=== PATIENT | female | born 1935 | race Caucasian/White ===

== ENCOUNTER → 2017-01-20 | Outpatient (CLI) | payer MEDICARE ==
[2017-01-20 12:17] LABS: ABSOLUTE EOSINOPHILS # (AUTO) 0.3 10^3/uL (0.0-0.6); ABSOLUTE LYMPHOCYTES (AUTO) 1.6 10^3/uL (0.5-4.7); ABSOLUTE MONOCYTES (AUTO) 0.5 10^3/uL (0.1-1.4); ABSOLUTE NEUT (AUTO) 3.5 10^3/uL (1.7-8.2); BASOPHILS % (AUTO) 0.5 % (0-2); EOSINOPHILS % (AUTO) 5.3 % (0-6); HEMATOCRIT 35.4 % (36.0-47.0); HEMOGLOBIN 12.6 g/dL (12.0-15.5); HGB HCT DIFFERENCE 2.4; LYMPHOCYTES % (AUTO) 27.2 % (13-45); MEAN CORPUSCULAR HEMOGLOBIN 33.6 pg (27.0-33.4); MEAN CORPUSCULAR HGB CONC 35.6 g/dL (32.0-36.0); MEAN CORPUSCULAR VOLUME 94 fl (80-97); MONOCYTES % (AUTO) 7.7 % (3-13); RED BLOOD COUNT 3.76 10^6/uL (3.72-5.28); RED CELL DISTRIBUTION WIDTH 13.5 % (11.5-14.0); SEGMENTED NEUTROPHILS % (AUTO) 59.3 % (42-78); WHITE BLOOD COUNT 5.9 10^3/uL (4.0-10.5)
[2017-01-20 12:50] LABS: ALANINE AMINOTRANSFERASE 23 U/L (9-52); ALBUMIN 4.3 g/dL (3.5-5.0); ALKALINE PHOSPHATASE 56 U/L (38-126); ANION GAP 10 (5-19); ASPARTATE AMINO TRANSFERASE 16 U/L (14-36); BILIRUBIN,DIRECT 0.5 mg/dL (0.0-0.4); BILIRUBIN,TOTAL 1.2 mg/dL (0.2-1.3); BLOOD UREA NITROGEN 18 mg/dL (7-20); CALCIUM 10.5 mg/dL (8.4-10.2); CARBON DIOXIDE 31 mmol/L (22-30); CHLORIDE 101 mmol/L (98-107); CHOLESTEROL 177.26 mg/dL (0-200); Direct HDL 59 mg/dL (>40); GLUCOSE 108 mg/dL (75-110); POTASSIUM 3.7 mmol/L (3.6-5.0); SODIUM 141.8 mmol/L (137-145); TOTAL PROTEIN 7.4 g/dL (6.3-8.2); TRIGLYCERIDES 155 mg/dL (<150)
[2017-01-20 13:01] LABS: DIRECT LDL 88 mg/dL (<100)
== END ==
LOC: OD 10:54
PROVIDERS: ATTEND Internal Medicine
DX: I10 Essential (primary) hypertension (principal); E78.5 Hyperlipidemia, unspecified; R53.83 Other fatigue
CPT/HCPCS: 36415; 80053; 80061; 84443; 85025

== ENCOUNTER → 2017-02-17 | Outpatient (CLI) | payer MEDICARE ==
[2017-02-17 16:30] LABS: FREE T3 4.3 pg/mL (2.77-5.27)
[2017-02-17 16:44] LABS: THYROID STIMULATING HORMONE 0.98 uIU/mL (0.47-4.68)
[2017-02-19 06:39] LABS: THYROXINE BINDING GLOBULIN 20 ug/mL (13-39)
[2017-02-19 07:40] LABS: THYROGLOBULIN AB <1.0 IU/mL (0.0-0.9); THYROID PEROXIDASE (TPO) AB 12 IU/mL (0-34)
== END ==
LOC: OD 14:15
PROVIDERS: ATTEND Internal Medicine
DX: E05.90 Thyrotoxicosis, unspecified without thyrotoxic crisis or storm (principal)
CPT/HCPCS: 36415; 83519; 84439; 84442; 84443; 84481; 86376; 86800

== ENCOUNTER 2018-03-23 09:37 | Inpatient (IN) | payer MEDICARE ==
[2018-03-23] MEDS: METHYLPREDNISOLONE ACETATE INJ 40 MG/1 ML ML IM ONE ×2 (10:03→10:26)
[2018-03-23] MEDS: BUPIVACAINE HCL 0.75% INJ/PF (7.5 MG/1 ML) 10 ML SDV INJ ONE ×2 (10:03→10:26)
--- NOTE | 2018-03-23 10:25 | ER Document Report ---
ED Medical Screen (RME) - General Chief Complaint: Neck Pain >24hrs old Stated Complaint: NECK AND BACK PAIN Time Seen by Provider: 03/23/18 09:58 Notes: 82 years old female presents today with left-sided upper neck pain. For the last few days. Otherwise no known injuries. No other symptoms. On examination sharp tenderness were noted over the upper left paraspinal muscles. No tenderness over the spinal process noted. When attempted to give a mixture of Sensorcaine and Marcaine as a trigger point injection, when the needle went into the neck in the paraspinal muscles, she had a immediate vasovagal response and became unresponsive. She was rushed to the trauma bed, given oxygen. Subsequently she came around fully alert and oriented. She has no recollection of what happened. TRAVEL OUTSIDE OF THE [place] IN LAST 30 DAYS: No - Related Data Allergies/Adverse Reactions: No Known Allergies Allergy (Unverified 09/16/15 10:05) Past Medical History - Past Medical History Cardiac Medical History: Reports: Hx Hypertension - medicated Denies: Hx Heart Attack - HX OF MITRAL VALVE PROLAPSE Pulmonary Medical History: Denies: Hx Asthma Neurological Medical History: Denies: Hx Cerebrovascular Accident, Hx Seizures Renal/ Medical History: Denies: Hx Peritoneal Dialysis GI Medical History: Denies: Hx Hepatitis, Hx Hiatal Hernia, Hx Ulcer Infectious Medical History: Denies: Hx Hepatitis Past Surgical History: Reports: Hx Hysterectomy. Denies: Hx Mastectomy, Hx Open Heart Surgery, Hx Pacemaker Physical Exam - Vital signs Vitals: Temp Pulse Resp BP Pulse Ox 97.7 F 94 14 195/82 H 69 L 03/23/18 09:45 03/23/18 09:45 03/23/18 09:45 03/23/18 09:45 03/23/18 09:45 Course - Vital Signs Vital signs: Temp Pulse Resp BP Pulse Ox 97.7 F 94 14 195/82 H 69 L 03/23/18 09:45 03/23/18 09:45 03/23/18 09:45 03/23/18 09:45 03/23/18 09:45 Doctor's Discharge - Discharge Referrals: LOLLY HARTMAN MD [Primary Care Provider] - Follow up as needed
[2018-03-23 10:30] LABS: ABSOLUTE LYMPHOCYTES (AUTO) 1.9 10^3/uL (0.5-4.7); ABSOLUTE MONOCYTES (AUTO) 0.7 10^3/uL (0.1-1.4); ABSOLUTE NEUT (AUTO) 8.7 10^3/uL (1.7-8.2); BASOPHILS % (AUTO) 0.2 % (0-2); EOSINOPHILS % (AUTO) 0.4 % (0-6); HEMATOCRIT 32.7 % (36.0-47.0); LYMPHOCYTES % (AUTO) 16.5 % (13-45); MEAN CORPUSCULAR HEMOGLOBIN 33.5 pg (27.0-33.4); MEAN CORPUSCULAR HGB CONC 36.7 g/dL (32.0-36.0); MEAN CORPUSCULAR VOLUME 91 fl (80-97); MONOCYTES % (AUTO) 5.8 % (3-13); PLATELET COUNT 237 10^3/uL (150-450); RED BLOOD COUNT 3.58 10^6/uL (3.72-5.28); RED CELL DISTRIBUTION WIDTH 13.5 % (11.5-14.0); SEGMENTED NEUTROPHILS % (AUTO) 77.1 % (42-78); TOTAL CELLS COUNTED % (AUTO) 100 %; WHITE BLOOD COUNT 11.2 10^3/uL (4.0-10.5)
[2018-03-23 10:45] LABS: ALANINE AMINOTRANSFERASE 18 U/L (9-52); ALBUMIN 4.4 g/dL (3.5-5.0); ALKALINE PHOSPHATASE 66 U/L (38-126); ANION GAP 11 (5-19); ASPARTATE AMINO TRANSFERASE 18 U/L (14-36); BILIRUBIN,DIRECT 0.5 mg/dL (0.0-0.4); BILIRUBIN,TOTAL 1.5 mg/dL (0.2-1.3); BLOOD UREA NITROGEN 14 mg/dL (7-20); CALCIUM 10.7 mg/dL (8.4-10.2); CARBON DIOXIDE 31 mmol/L (22-30); CHLORIDE 94 mmol/L (98-107); GLUCOSE 143 mg/dL (75-110); POTASSIUM 3.7 mmol/L (3.6-5.0); SODIUM 136.3 mmol/L (137-145); TOTAL PROTEIN 7.6 g/dL (6.3-8.2)
--- NOTE | 2018-03-23 10:53 | RADIOLOGY REPORT (SQ) ---
EXAM DESCRIPTION: CT HEAD WITHOUT COMPLETED DATE/TIME: 03/23/2018 10:36 am REASON FOR STUDY: syncope COMPARISON: None. TECHNIQUE: Axial images acquired through the brain without intravenous contrast. Images reviewed wi th bone, brain and subdural windows. Additional sagittal and coronal reconstructions were generated. Images stored on PACS. All CT scanners at this facility use dose modulation, iterative reconstruction, and/or weight based d osing when appropriate to reduce radiation dose to as low as reasonably achievable (ALARA). [facility]: Dose Right [facility]: CareDose [facility]: Dose Right [facility]: Teradose 4D [facility]: QuadROI RADIATION DOSE: CT Rad equipment meets quality standard of care and radiation dose reduction techniq ues were employed. CTDIvol: 53.2 mGy. DLP: 1017 mGy-cm.mGy. LIMITATIONS: None. FINDINGS: VENTRICLES: Prominent. CEREBRUM: No masses. No hemorrhage. No midline shift. Areas of low density in the white matter mos t likely due to chronic micro-vascular ischemic change. No evidence for acute infarction. CEREBELLUM: No masses. No hemorrhage. No alteration of density. No evidence for acute infarction. EXTRAAXIAL SPACES: Age-related involutional change. No fluid collections. No masses. ORBITS AND GLOBE: No intra- or extraconal masses. Normal contour of globe without masses. CALVARIUM: No fracture. PARANASAL SINUSES: Mucosal nodule in the right maxillary sinus. No fluid levels. SOFT TISSUES: No mass or hematoma. OTHER: No other significant finding. IMPRESSION: CHRONIC CHANGES OF ATROPHY AND MICROVASCULAR ISCHEMIA. NO ACUTE PROCESS. EVIDENCE OF ACUTE STROKE: NO. TECHNICAL DOCUMENTATION: JOB ID: [id number] Quality ID # 436: Final reports with documentation of one or more dose reduction techniques (e.g., Au tomated exposure control, adjustment of the mA and/or kV according to patient size, use of iterative reconstruction technique) 2010 [employer]- All Rights Reserved Reading location - IP/workstation name: [email or web address]
--- NOTE | 2018-03-23 11:01 | RADIOLOGY REPORT (SQ) ---
EXAM DESCRIPTION: CHEST SINGLE VIEW COMPLETED DATE/TIME: 03/23/2018 10:44 am REASON FOR STUDY: syncope COMPARISON: None. NUMBER OF VIEWS: One view. TECHNIQUE: Single frontal radiographic view of the chest acquired. LIMITATIONS: None. FINDINGS: LUNGS AND PLEURA: No opacities, masses or pneumothorax. No pleural effusion. MEDIASTINUM AND HILAR STRUCTURES: No masses. Contour normal. HEART AND VASCULAR STRUCTURES: Heart enlarged without failure. Normal vasculature. BONES: No acute findings. HARDWARE: None in the chest. OTHER: No other significant finding. IMPRESSION: HEART ENLARGED WITHOUT FAILURE. NO OTHER SIGNIFICANT RADIOGRAPHIC FINDING IN THE CHEST. TECHNICAL DOCUMENTATION: JOB ID: [id number] [employer]- All Rights Reserved Reading location - IP/workstation name: [email or web address]
--- NOTE | 2018-03-23 11:35 | ER Document Report ---
ED General - General Chief Complaint: Neck Pain >24hrs old Stated Complaint: NECK AND BACK PAIN Time Seen by Provider: 03/23/18 09:58 TRAVEL OUTSIDE OF THE [place] IN LAST 30 DAYS: No - HPI Notes: Patient is a 82-year-old female that presents to the emergency department for chief complaint of neck pain. Patient presented to triage complaining of neck pain. While receiving trigger point injection she had loss of consciousness. There was no seizure activity seen. Patient was flaccid with no incontinence. HPI is limited because of patient's current mental status. She is able to tell me her name but is confabulating and continuing to repeat her name. Past Medical History: Hypertension, hyperlipidemia Past Surgical History: Unknown Social History: unknown Family History: Reviewed and noncontributory for presenting illness Allergies: Reviewed, see documented allergy list. REVIEW OF SYSTEMS: Unable to obtain because of current mental status PHYSICAL EXAMINATION: Vital signs reviewed, nursing noted reviewed. GENERAL: well-nourished HEAD: Atraumatic, normocephalic. EYES: Eyes appear normal, extraocular movements intact, sclera anicteric, conjunctiva are normal. ENT: nares patent, oropharynx clear without exudates. Moist mucous membranes. NECK: Normal range of motion, supple without lymphadenopathy. Tender left paraspinal muscle tenderness. LUNGS: Breath sounds clear to auscultation bilaterally and equal. No wheezes rales or rhonchi. HEART: Bradycardic and irregular rhythm without murmurs ABDOMEN: Soft, nontender, normoactive bowel sounds. No rebound, guarding, or rigidity. No masses appreciated. EXTREMITIES: Nontender, good range of motion, no pitting or edema. NEUROLOGICAL: No focal neurological deficits. Moves all extremities spontaneously Motor and sensory grossly intact on exam. PSYCH: Normal mood, normal affect. SKIN: Warm, Dry, normal turgor, no rashes or lesions noted on exposed skin - Related Data Allergies/Adverse Reactions: No Known Allergies Allergy (Unverified 09/16/15 10:05) Past Medical History - Social History Smoking Status: Unknown if Ever Smoked Family History: Reviewed & Not Pertinent Patient has suicidal ideation: No Patient has homicidal ideation: No - Past Medical History Cardiac Medical History: Reports: Hx Hypertension - medicated Denies: Hx Heart Attack - HX OF MITRAL VALVE PROLAPSE Pulmonary Medical History: Denies: Hx Asthma Neurological Medical History: Denies: Hx Cerebrovascular Accident, Hx Seizures Renal/ Medical History: Denies: Hx Peritoneal Dialysis GI Medical History: Denies: Hx Hepatitis, Hx Hiatal Hernia, Hx Ulcer Infectious Medical History: Denies: Hx Hepatitis Past Surgical History: Reports: Hx Hysterectomy. Denies: Hx Mastectomy, Hx Open Heart Surgery, Hx Pacemaker Physical Exam - Vital signs Vitals: Temp Pulse Resp BP Pulse Ox 97.7 F 94 14 195/82 H 69 L 03/23/18 09:45 03/23/18 09:45 03/23/18 09:45 03/23/18 09:45 03/23/18 09:45 Course - Re-evaluation Re-evalutation: 03/23/18 14:21 Patient came back from triage during a syncopal episode. She was initially unresponsive but quickly became responsive to painful stimuli. When I saw her she would open her eyes to painful stimuli and was muttering her name repeatedly. She did quickly returned to baseline. During the episode of syncope her EKG showed atrial fibrillation with a rate of 65. She denies any history of A. fib in the past. Patient was reevaluated at 1415 and has remained back to her baseline. Her only complaint now is pain on the left side of her neck. She states she has been having this left-sided neck pain for the last week and a half. She was seen by ENT on Tuesday and told it was musculoskeletal. The pain is been constant and is worse with movement. She denies any relieving factors. She denies any associated chest pain, shortness of breath, nausea, vomiting diaphoresis. She denies any history of atrial fibrillation or syncope. 03/23/18 14:58 Patient reevaluated and is still hemodynamically stable. Her EKG on reevaluation shows some improvement of her lateral ST depression. There is still no ST elevation. Patient is still in atrial fibrillation which is new for her. She has slow ventricular response which may have led to her prolonged syncope. Patient's lab work is unremarkable. She was given a dose of Tylenol for her neck pain. She will be admitted to the hospital for telemetry monitoring and cardiac evaluation after her syncope with new onset A. fib. Laboratory 03/23/18 03/23/18 03/23/18 10:11 10:11 10:11 WBC 11.2 H RBC 3.58 L Hgb 12.0 Hct 32.7 L MCV 91 MCH 33.5 H MCHC 36.7 H RDW 13.5 Plt Count 237 Seg Neutrophils % 77.1 Lymphocytes % 16.5 Monocytes % 5.8 Eosinophils % 0.4 Basophils % 0.2 Absolute Neutrophils 8.7 H Absolute Lymphocytes 1.9 Absolute Monocytes 0.7 Absolute Eosinophils 0.0 Absolute Basophils 0.0 Sodium 136.3 L Potassium 3.7 Chloride 94 L Carbon Dioxide 31 H Anion Gap 11 BUN 14 Creatinine 0.71 Est GFR ( Amer) > 60 Est GFR (Non-Af Amer) > 60 Glucose 143 H POC Glucose Calcium 10.7 H Total Bilirubin 1.5 H Direct Bilirubin 0.5 H Neonat Total Bilirubin Not Reportable Neonat Direct Bilirubin Not Reportable Neonat Indirect Bili Not Reportable AST 18 ALT 18 Alkaline Phosphatase 66 Troponin I < 0.012 Total Protein 7.6 Albumin 4.4 03/23/18 10:16 WBC RBC Hgb Hct MCV MCH MCHC RDW Plt Count Seg Neutrophils % Lymphocytes % Monocytes % Eosinophils % Basophils % Absolute Neutrophils Absolute Lymphocytes Absolute Monocytes Absolute Eosinophils Absolute Basophils Sodium Potassium Chloride Carbon Dioxide Anion Gap BUN Creatinine Est GFR ( Amer) Est GFR (Non-Af Amer) Glucose POC Glucose 152 H Calcium Total Bilirubin Direct Bilirubin Neonat Total Bilirubin Neonat Direct Bilirubin Neonat Indirect Bili AST ALT Alkaline Phosphatase Troponin I Total Protein Albumin Chest X-Ray 03/23/18 10:23 IMPRESSION: HEART ENLARGED WITHOUT FAILURE. NO OTHER SIGNIFICANT RADIOGRAPHIC FINDING IN THE CHEST. Head CT 03/23/18 10:23 IMPRESSION: CHRONIC CHANGES OF ATROPHY AND MICROVASCULAR ISCHEMIA. NO ACUTE PROCESS. EVIDENCE OF ACUTE STROKE: NO. 03/23/18 15:32 Patient's care discussed with Dr. Nicolas who requested a CTA of patient's neck be obtained to evaluate for any injury during the injection. Patient has no external signs of where the injection was given. Dr. Machuca who administered the trigger point injection told me the injection was still superficial he had just started when she had a syncopal event. I do not clinically suspect underlying vascular injury however CT angios will be performed for further evaluation prior to him excepting for admission. 03/23/18 17:[address] shows some carotid stenosis, a small thyroid nodule but is otherwise unremarkable with no signs of injury from her procedure today. Case was again discussed with Dr. Nicolas who accepted admission. Chest X-Ray 03/23/18 10:23 IMPRESSION: HEART ENLARGED WITHOUT FAILURE. NO OTHER SIGNIFICANT RADIOGRAPHIC FINDING IN THE CHEST. Head CT 03/23/18 10:23 IMPRESSION: CHRONIC CHANGES OF ATROPHY AND MICROVASCULAR ISCHEMIA. NO ACUTE PROCESS. EVIDENCE OF ACUTE STROKE: NO. Neck CTA 03/23/18 15:30 IMPRESSION: 1. Tortuous right internal carotid. No significant stenotic lesion. 2. There is a very prominent plaque in the carotid bulb at the origin the internal carotid. Significant stenosis is suggested. Ultrasound is recommended. 3. There is a 16 mm low-density lesion in the right lobe of the thyroid. - Vital Signs Vital signs: Temp Pulse Resp BP Pulse Ox 97.7 F 94 15 164/58 H 98 03/23/18 09:45 03/23/18 09:45 03/23/18 16:35 03/23/18 15:48 03/23/18 16:35 - Laboratory Result Diagrams: 03/23/18 10:11 03/23/18 10:11 Laboratory results interpreted by me: 03/23/18 03/23/18 03/23/18 10:11 10:11 10:16 WBC 11.2 H RBC 3.58 L Hct 32.7 L MCH 33.5 H MCHC 36.7 H Absolute Neutrophils 8.7 H Sodium 136.3 L Chloride 94 L Carbon Dioxide 31 H Glucose 143 H POC Glucose 152 H Calcium 10.7 H Total Bilirubin 1.5 H Direct Bilirubin 0.5 H - EKG Interpretation by Me Additional EKG results interpreted by me: 03/23/18 10:25 Interpreted by myself 1017: Atrial fibrillation, rate 65, normal axis, prolonged QT at 504, ST depression laterally, no ST elevation 03/23/18 14:57 Turbid by myself 1425: Atrial fibrillation, rate 59, normal axis, normal QT at 428, improvement of ST depression laterally, no ST elevation Critical Care Note - Critical Care Note Total time excluding time spent on procedures (mins): 35 Comments: Patient was unresponsive during my first evaluation. She had multiple frequent re-evaluations of her mental status. Interpretation of multiple EKGs for hemodynamic stability. Case discussed with physician. Case discussed with family. Patient has potential for hemodynamic compromise. Discharge - Discharge Clinical Impression: Atrial fibrillation with slow ventricular response, Neck pain Syncope Qualifiers: Syncope type: unspecified Qualified Code(s): R55 - Syncope and collapse Carotid stenosis Qualifiers: Laterality: unspecified laterality Qualified Code(s): I65.29 - Occlusion and stenosis of unspecified carotid artery Condition: Stable Admitting Provider: Maria Isabel Unit Admitted: [facility]
--- NOTE | 2018-03-23 13:36 | EKG REPORT ---
SEVERITY:- ABNORMAL ECG - ATRIAL FIBRILLATION REPOL ABNRM SUGGESTS ISCHEMIA, DIFFUSE LEADS BORDERLINE PROLONGED QT INTERVAL : Confirmed by: Neftali Blake MD 23-Mar-2018 13:36:00
--- NOTE | 2018-03-23 16:35 | RADIOLOGY REPORT (SQ) ---
EXAM DESCRIPTION: CTA NECK COMPLETED DATE/TIME: 03/23/2018 4:08 pm REASON FOR STUDY: neck pain, left COMPARISON: None. TECHNIQUE: Axial dynamic scanning technique with dynamic contrast enhancement through the extra-crane operator nial carotid and vertebral arteries. Multiplanar reconstruction. 3-D MIPS and Volume-rendered imag es acquired at the workstation and saved to PACS. Images are reviewed in soft tissue, bone, lung w indows. All CT scanners at this facility use dose modulation, iterative reconstruction, and/or weight based d osing when appropriate to reduce radiation dose to as low as reasonably achievable (ALARA). [facility]: Dose Right [facility]: CareDose [facility]: Dose Right [facility]: Teradose 4D [facility]: LookFlow CONTRAST TYPE AND DOSE: contrast/concentration: Isovue 350.00 mg/ml; Total Contrast Delivered: 70.0 ml; Total Saline Delivered: 50.0 ml RENAL FUNCTION: BUN 14 creatinine 0.7 LIMITATIONS: None. FINDINGS: AORTIC ARCH: Normal three-vessel origin. Bilateral subclavian arteries are patent. No d issection. RIGHT CAROTIDS: Patent common, internal and external carotid arteries without suggestion of significa nt stenosis or irregular plaque. Right internal carotid is tortuous. No dissection. RIGHT VERTEBRAL: Patent. No dissection. LEFT CAROTIDS: There is a large plaque in the carotid bulb at the origin of the internal carotid. LEFT VERTEBRAL: Patent. No dissection. OTHER: There is a 16 mm low-density lesion in the right lobe of the thyroid gland. OTHER: 3-D reconstructions confirm findings. IMPRESSION: 1. Tortuous right internal carotid. No significant stenotic lesion. 2. There is a very prominent plaque in the carotid bulb at the origin the internal carotid. Signifi cant stenosis is suggested. Ultrasound is recommended. 3. There is a 16 mm low-density lesion in the right lobe of the thyroid. COMMENT: Quality ID #195: Measurements of distal internal carotid diameter were used as the denomina tor for stenosis measurement. TECHNICAL DOCUMENTATION: JOB ID: [id number] Quality ID # 436: Final reports with documentation of one or more dose reduction techniques (e.g., Au tomated exposure control, adjustment of the mA and/or kV according to patient size, use of iterative reconstruction technique) 2010 [employer]- All Rights Reserved Reading location - IP/workstation name: [email or web address]
[2018-03-23] MEDS ORDERED: DEXTROSE 50%-WATER 25 GM/50 ML DISP.SYRIN IV PRN ×2 (18:30)
[2018-03-23] MEDS ORDERED: DEXTROSE 40% GEL 15 GM TUBE PO PRN ×2 (18:30)
[2018-03-23] MEDS ORDERED: GLUCAGON,HUMAN RECOMB 1 MG INJ SUBCUT PRN (18:30)
--- NOTE | 2018-03-23 18:56 | PDOC H&P ---
History of Present Illness Admission Date/PCP: 03/23/18 17:57 LOLLY HARTMAN MD Patient complains of: syncope vasovagal. afib History of Present Illness: MARISELA PATEL is a 82 year old female Past Medical History Cardiac Medical History: Reports: Hypertension - medicated Denies: Myocardial Infarction - HX OF MITRAL VALVE PROLAPSE Pulmonary Medical History: Denies: Asthma Neurological Medical History: Denies: Seizures Endocrine Medical History: Denies: Diabetes Mellitus Type 2 GI Medical History: Denies: Hepatitis, Hiatal Hernia Musculoskeltal Medical History: Reports: Arthritis Hematology: Denies: Anemia, Sickle Cell Disease Past Surgical History Past Surgical History: Reports: Hysterectomy Denies: Amputation, Mastectomy, Pacemaker Social History Smoking Status: Unknown if Ever Smoked Family History Family History: Reviewed & Not Pertinent Parental Family History Reviewed: Yes Children Family History Reviewed: Yes Sibling(s) Family History Reviewed.: Yes Medication/Allergy Home Medications: Lovastatin 2 tab PO QHS 09/11/15 Metoprolol Tartrate [Lopressor] 2 tab PO BID 09/11/15 Lisinopril/Hydrochlorothiazide [Lisinopril-Hctz 20-25 mg Tab] 1 each PO QAM Aspirin [Ecotrin] 81 mg PO DAILY PRN 03/23/18 Multivitamin/Iron/Folic Acid [Centrum Women Tablet] 1 tab PO DAILY 03/23/18 Oxybutynin Chloride [Oxybutynin Chloride ER] 10 mg PO DAILY 03/23/18 Allergies/Adverse Reactions: No Known Allergies Allergy (Unverified 09/16/15 10:05) Review of Systems All systems: as per [facility] Physical Exam Vital Signs: Temp Pulse Resp BP Pulse Ox 97.7 F 94 15 164/58 H 98 03/23/18 09:45 03/23/18 09:45 03/23/18 16:35 03/23/18 15:48 03/23/18 16:35 General appearance: PRESENT: mild distress Eye exam: PRESENT: conjunctiva pink Neck exam: PRESENT: carotid bruit, tenderness. ABSENT: JVD Respiratory exam: PRESENT: clear to auscultation martha Cardiovascular exam: PRESENT: irregular rhythm, +S1, +S2 GI/Abdominal exam: PRESENT: normal bowel sounds, soft Extremities exam: PRESENT: tenderness Musculoskeletal exam: PRESENT: tenderness Neurological exam: PRESENT: alert, awake Psychiatric exam: PRESENT: anxious Results Impressions: Chest X-Ray 03/23/18 10:23 IMPRESSION: HEART ENLARGED WITHOUT FAILURE. NO OTHER SIGNIFICANT RADIOGRAPHIC FINDING IN THE CHEST. Head CT 03/23/18 10:23 IMPRESSION: CHRONIC CHANGES OF ATROPHY AND MICROVASCULAR ISCHEMIA. NO ACUTE PROCESS. EVIDENCE OF ACUTE STROKE: NO. Neck CTA 03/23/18 15:30 IMPRESSION: 1. Tortuous right internal carotid. No significant stenotic lesion. 2. There is a very prominent plaque in the carotid bulb at the origin the internal carotid. Significant stenosis is suggested. Ultrasound is recommended. 3. There is a 16 mm low-density lesion in the right lobe of the thyroid. Assessment & Plan - Diagnosis (1) Hypertension Qualifiers: Hypertension type: essential hypertension Qualified Code(s): I10 - Essential (primary) hypertension Is this a current diagnosis for this admission?: Yes Plan: akin (2) Hyperlipemia Is this a current diagnosis for this admission?: Yes Plan: meds (3) Atrial fibrillation with slow ventricular response Is this a current diagnosis for this admission?: Yes Plan: ekg, echo, card consult (4) Carotid stenosis Qualifiers: Laterality: unspecified laterality Qualified Code(s): I65.29 - Occlusion and stenosis of unspecified carotid artery Is this a current diagnosis for this admission?: Yes Plan: pito (5) Syncope Qualifiers: Syncope type: vasovagal syncope Qualified Code(s): R55 - Syncope and collapse Is this a current diagnosis for this admission?: Yes Plan: fluids
--- NOTE | 2018-03-23 19:08 | EKG REPORT ---
SEVERITY:- ABNORMAL ECG - ATRIAL FIBRILLATION NONSPECIFIC REPOL ABNORMALITY, DIFFUSE LEADS : Confirmed by: Neftali Blake MD 23-Mar-2018 19:08:09
[2018-03-23 20:13] LABS: CREATINE KINASE MB 0.55 ng/mL (<4.55); TROPONIN I 0.019 ng/mL
[2018-03-23] MEDS: NORMAL SALINE 1000 ML 1,000 ML IV PRN (20:37)
[2018-03-23] MEDS: ACETAMINOPHEN 325 MG TABLET PO PRN (20:37)
--- NOTE | 2018-03-23 20:42 | RADIOLOGY REPORT (SQ) ---
EXAM DESCRIPTION: CAROTID DOPPLER COMPLETED DATE/TIME: 03/23/2018 8:31 pm REASON FOR STUDY: carotid plaque,abn cta neck COMPARISON: None. TECHNIQUE: Grayscale ultrasound, Doppler velocity and spectra, and color Doppler images acquired of the extra-cranial carotid and vertebral arteries. Images stored on PACS. LIMITATIONS: None. FINDINGS: RIGHT CAROTID CCA Velocities: Within normal limits. ICA Velocities Peak systolic 0.97 m/s. End diastolic 0.16 m/s. Proximal ICA/CCA peak systolic ratio 1.0. Mild soft plaque. LEFT CAROTID CCA Velocities: Within normal limits. ICA Velocities Peak systolic 1.2 m/s. End diastolic 0.12 m/s. Proximal ICA/CCA peak systolic ratio 1.6. Soft plaque. VERTEBRAL ARTERIES: Antegrade flow. Normal waveforms. SUBCLAVIAN ARTERIES: No finding. OTHER: Elevated ECA velocities. IMPRESSION: NO HEMODYNAMICALLY SIGNIFICANT STENOSIS. COMMENT: Quality ID #195: Velocity criteria are extrapolated from the diameter data as defined by t he Society of Radiologists in Ultrasound Consensus Conference. Radiology 2003: 229; 340-346. TECHNICAL DOCUMENTATION: JOB ID: [id number] [employer]- All Rights Reserved Reading location - IP/workstation name: [email or web address]
[2018-03-23] MEDS ORDERED: LOVASTATIN PO SCH (22:00)
[2018-03-23] MEDS ORDERED: METOPROLOL TARTRATE 100 MG TABLET PO SCH (22:00)
[2018-03-23] MEDS: HEPARIN SOD (PORCINE) 5,000 UNIT/ML 1 ML SYRINGE SUBCUT SCH (23:29)
[2018-03-23] MEDS: ATORVASTATIN CALCIUM 10 MG TABLET PO SCH (23:31)
[2018-03-24 02:41] LABS: CREATINE KINASE MB 0.55 ng/mL (<4.55); TROPONIN I 0.013 ng/mL
[2018-03-24] MEDS: HEPARIN SOD (PORCINE) 5,000 UNIT/ML 1 ML SYRINGE SUBCUT SCH ×3 (05:48→21:57)
[2018-03-24] MEDS: ACETAMINOPHEN 325 MG TABLET PO PRN (06:06)
--- NOTE | 2018-03-24 07:54 | EKG REPORT ---
SEVERITY:- ABNORMAL ECG - ATRIAL FIBRILLATION NONSPECIFIC INTRAVENTRICULAR CONDUCTION DELAY PROBABLE LEFT VENTRICULAR HYPERTROPHY NONSPECIFIC ST-T CHANGES DIFFUSE : Confirmed by: Neftali Blake MD 24-Mar-2018 07:53:35
[2018-03-24 08:03] LABS: ABSOLUTE EOSINOPHILS # (AUTO) 0.1 10^3/uL (0.0-0.6); ABSOLUTE MONOCYTES (AUTO) 0.6 10^3/uL (0.1-1.4); ABSOLUTE NEUT (AUTO) 4.8 10^3/uL (1.7-8.2); BASOPHILS % (AUTO) 0.3 % (0-2); EOSINOPHILS % (AUTO) 2.1 % (0-6); HEMATOCRIT 29.7 % (36.0-47.0); HEMOGLOBIN 10.9 g/dL (12.0-15.5); LYMPHOCYTES % (AUTO) 15.1 % (13-45); MEAN CORPUSCULAR HEMOGLOBIN 33.6 pg (27.0-33.4); MEAN CORPUSCULAR HGB CONC 36.8 g/dL (32.0-36.0); MEAN CORPUSCULAR VOLUME 91 fl (80-97); MONOCYTES % (AUTO) 8.9 % (3-13); PLATELET COUNT 212 10^3/uL (150-450); RED BLOOD COUNT 3.26 10^6/uL (3.72-5.28); RED CELL DISTRIBUTION WIDTH 13.4 % (11.5-14.0); SEGMENTED NEUTROPHILS % (AUTO) 73.6 % (42-78); TOTAL CELLS COUNTED % (AUTO) 100 %; WHITE BLOOD COUNT 6.6 10^3/uL (4.0-10.5)
[2018-03-24 08:31] LABS: ALANINE AMINOTRANSFERASE 19 U/L (9-52); ALBUMIN 3.5 g/dL (3.5-5.0); ALKALINE PHOSPHATASE 57 U/L (38-126); ANION GAP 8 (5-19); ASPARTATE AMINO TRANSFERASE 12 U/L (14-36); BILIRUBIN,DIRECT 0.4 mg/dL (0.0-0.4); BILIRUBIN,TOTAL 1.3 mg/dL (0.2-1.3); BLOOD UREA NITROGEN 10 mg/dL (7-20); CALCIUM 9.8 mg/dL (8.4-10.2); CARBON DIOXIDE 34 mmol/L (22-30); CHLORIDE 95 mmol/L (98-107); CREATINE KINASE 23 U/L (30-135); GLUCOSE 116 mg/dL (75-110); SODIUM 137.4 mmol/L (137-145); TOTAL PROTEIN 6.3 g/dL (6.3-8.2)
[2018-03-24 08:42] LABS: CREATINE KINASE MB 0.69 ng/mL (<4.55); TROPONIN I 0.021 ng/mL
--- NOTE | 2018-03-24 09:10 | PDOC PROGRESS REPORT ---
Subjective Progress Note for:: 03/24/18 Subjective:: The patient states to feel better. She is only complaining of neck pain. The mystery of abnormal CTA and a normal carotid Doppler has been resolved. The patient does not have a critical stenosis of her carotid. She is still in slow A. fib. Discussed with the daughter about need for anticoagulation. Reason For Visit: NEW ONSET AFIB, SYNCOPE VASOVAGAL, HTN, Physical Exam Vital Signs: Temp Pulse Resp BP Pulse Ox 98.2 F 57 L 17 194/81 H 99 03/24/18 07:29 03/24/18 08:30 03/24/18 07:29 03/24/18 07:29 03/24/18 07:29 Intake & Output 03/23/18 03/24/18 03/25/18 06:59 06:59 06:59 Intake Total 0 Output Total 375 Balance -375 Weight 60.2 kg General appearance: PRESENT: mild distress Head exam: PRESENT: atraumatic Eye exam: PRESENT: conjunctiva pink Neck exam: ABSENT: carotid bruit, JVD Respiratory exam: PRESENT: clear to auscultation martha Cardiovascular exam: PRESENT: irregular rhythm, +S1, +S2 GI/Abdominal exam: PRESENT: normal bowel sounds, soft Extremities exam: PRESENT: full ROM Musculoskeletal exam: PRESENT: ambulatory Neurological exam: PRESENT: awake Results Laboratory Results: 03/24/18 07:50 03/24/18 07:50 03/24/18 03/24/18 07:50 07:50 WBC 6.6 RBC 3.26 L Hgb 10.9 L Hct 29.7 L MCV 91 MCH 33.6 H MCHC 36.8 H RDW 13.4 Plt Count 212 Seg Neutrophils % 73.6 Lymphocytes % 15.1 Monocytes % 8.9 Eosinophils % 2.1 Basophils % 0.3 Absolute Neutrophils 4.8 Absolute Lymphocytes 1.0 Absolute Monocytes 0.6 Absolute Eosinophils 0.1 Absolute Basophils 0.0 Sodium 137.4 Potassium 3.0 L* Chloride 95 L Carbon Dioxide 34 H Anion Gap 8 BUN 10 Creatinine 0.74 Est GFR ( Amer) > 60 Est GFR (Non-Af Amer) > 60 Glucose 116 H Calcium 9.8 Magnesium 1.4 L Total Bilirubin 1.3 AST 12 L ALT 19 Alkaline Phosphatase 57 Total Protein 6.3 Albumin 3.5 03/23/18 03/23/18 03/24/18 19:30 19:30 01:35 Creatine Kinase 23 L 21 L CK-MB (CK-2) 0.55 Troponin I 0.019 03/24/18 03/24/18 03/24/18 01:35 07:50 07:50 Creatine Kinase 23 L CK-MB (CK-2) 0.55 0.69 Troponin I 0.013 0.021 Impressions: Carotid Doppler Study 03/23/18 00:00 IMPRESSION: NO HEMODYNAMICALLY SIGNIFICANT STENOSIS. Chest X-Ray 03/23/18 10:23 IMPRESSION: HEART ENLARGED WITHOUT FAILURE. NO OTHER SIGNIFICANT RADIOGRAPHIC FINDING IN THE CHEST. Head CT 03/23/18 10:23 IMPRESSION: CHRONIC CHANGES OF ATROPHY AND MICROVASCULAR ISCHEMIA. NO ACUTE PROCESS. EVIDENCE OF ACUTE STROKE: NO. Neck CTA 03/23/18 15:30 IMPRESSION: 1. Tortuous right internal carotid. No significant stenotic lesion. 2. There is a very prominent plaque in the carotid bulb at the origin the internal carotid. Significant stenosis is suggested. Ultrasound is recommended. 3. There is a 16 mm low-density lesion in the right lobe of the thyroid. Assessment & Plan - Diagnosis (1) Hypertension Qualifiers: Hypertension type: essential hypertension Qualified Code(s): I10 - Essential (primary) hypertension Is this a current diagnosis for this admission?: Yes Plan: akin (2) Hyperlipemia Is this a current diagnosis for this admission?: Yes Plan: meds (3) Atrial fibrillation with slow ventricular response Is this a current diagnosis for this admission?: Yes Plan: Awaiting cardiology consultation. Discussed with the daughter and the patient the anticoagulation (4) Carotid stenosis Qualifiers: Laterality: unspecified laterality Qualified Code(s): I65.29 - Occlusion and stenosis of unspecified carotid artery Is this a current diagnosis for this admission?: Yes Plan: Carotid Doppler was negative. Discussed with the radiology. The CTA was probably an over read. (5) Syncope Qualifiers: Syncope type: vasovagal syncope Qualified Code(s): R55 - Syncope and collapse Is this a current diagnosis for this admission?: Yes Plan: No further signs of syncope. Will stop demands. Most probably vasovagal. The patient is well hydrated
[2018-03-24] MEDS: ASPIRIN 81 MG TABLET, ENT COATED PO SCH (09:25)
[2018-03-24] MEDS: POTASSIUM CHLORIDE 10 MEQ CAPSULE.ER PO SCH ×2 (09:26→21:56)
[2018-03-24] MEDS: MULTIVITAMIN TABLET PO SCH (09:26)
[2018-03-24] MEDS ORDERED: LOSARTAN POTASSIUM 50 MG TABLET PO ONE (09:30)
[2018-03-24] MEDS: NORMAL SALINE 1000 ML 1,000 ML IV PRN (09:45)
[2018-03-24] MEDS ORDERED: PREDNISONE 10 MG TABLET PO SCH (10:00)
[2018-03-24] MEDS ORDERED: MULTIVITAMIN PO SCH (10:00)
[2018-03-24] MEDS ORDERED: KETOROLAC TROMETHAMINE INJ/PF 30 MG/1 ML SDV IV ONE (10:00)
[2018-03-24] MEDS ORDERED: PREDNISONE 20 MG TABLET PO ONE (10:00)
[2018-03-24] MEDS ORDERED: FOLIC ACID PO SCH (10:00)
[2018-03-24] MEDS ORDERED: METOPROLOL TARTRATE 50 MG TABLET PO SCH (10:00)
[2018-03-24] MEDS ORDERED: IRON PO SCH (10:00)
[2018-03-24] MEDS: HYDRALAZINE HCL 50 MG TABLET PO SCH ×2 (12:04→18:31)
[2018-03-24 13:27] LABS: FREE T3 2.96 pg/mL (2.77-5.27); FREE T4 (FREE THYROXINE) 1.59 ng/dL (0.78-2.19)
[2018-03-24 13:41] LABS: THYROID STIMULATING HORMONE 0.71 uIU/mL (0.47-4.68)
[2018-03-24] MEDS: PREDNISONE 20 MG TABLET PO SCH (18:31)
[2018-03-24] MEDS: ATORVASTATIN CALCIUM 10 MG TABLET PO SCH (21:57)
--- NOTE | 2018-03-24 21:58 | PDOC CONSULTATION ---
Consultation-Blank Consultation: CARDIOLOGY CONSULTATION by Dr. Laverne Jacobson on 03/24/2018. Patient seen at 11 AM on 05/24/2017. REASON FOR CONSULTATION: Patient with syncope, and atrial fibrillation.. HISTORY OF PRESENT ILLNESS: Patient is a 82-year-old female with known history of hypertension, and history of mitral valve prolapse, states a few days ago she had sudden onset of left ear pain. She went and saw a ENT specialist, and the diagnosis by him is not known to the patient. Subsequently she had sharp pain in the left side of the neck which increased when she moved her neck. She came to the and she was in severe pain in spite of analgesics. Hence the patient's drove her to the [facility] ER. When they attempted to give a topical numbing medicine, as soon as the needle went into the patient's neck the patient had a syncopal episode, without any seizure activity. She did not remember the event. Subsequently she was not confused. Subsequently she was found to be in atrial fibrillation with over slow ventricular response. This may be due to the fact that the patient has been on beta-blockers and a high dosage at home. She denies any chest pain or discomfort. There is some hearing loss on the left side. There is no TIA or CVA symptoms. The patient has no anginal symptoms. Patient has no history of prior syncope. There is no leg edema. There is no shortness of breath. There is no PND orthopnea. The patient also was found to have a low potassium and low magnesium, which have been replenished. PAST MEDICAL HISTORY: She has a history of mitral valve prolapse diagnosed some years ago. She has a history of hypertension. She denies any thyroid disease, but this admission the patient's CT of the neck shows a nodule in the right thyroid. She has no symptoms of hyper or hypothyroidism. She has no history of diabetes mellitus. She has no history of chronic kidney disease. She has no history of TIA or CVA. No history of headaches migraines seizures or anxiety or depression. She has no history of asthma or COPD. There is no history of sleep apnea, no history of pulmonary embolism. PAST SURGICAL HISTORY: Tonsillectomy and adenoidectomy. She has had hysterectomy, and right cataract surgery. ALLERGIES: No known drug allergies. FAMILY HISTORY: Is positive for history of premature coronary artery disease in the father. SOCIAL HISTORY: The patient is , lives with her . She has never smoked. There is no history of EtOH abuse. DISPOSITION: The patient is a full code, her is a surrogate healthcare decision maker. REVIEW OF SYSTEMS: CONSTITUTIONAL: Denies any fever chills or rigors. No history of fatigue or generalized weakness. HEAD: No history of head injury no history of headaches. EYES: No history of amblyopia diplopia. No history of amaurosis fugax. EARS: Initially the patient is right ear pain, which is now resolved, she does complain of some decreased hearing on the left side. There is no vertigo. There is no tinnitus. NOSE: No history of hayfever. No history of nosebleeds. MOUTH: No history of altered taste sensation. No history of ulcers in the mouth. No bleeding from the gums. THROAT: She recently after the year and neck pain had odynophagia and dysphagia which is now resolved. There is no aspiration. SKIN: No pruritus. No yellowish discoloration of the skin. No psoriasis. No skin cancer. NECK: Left-sided neck pain as mentioned earlier seems to be musculoskeletal. Had a vasovagal episode when they try to inject the trigger point to numb it. She has no history of goiter. There is a nodule found in the right thyroid gland. There is no lymphadenopathy. There is no goiter. LUNGS: No history of cough or sputum production. No history of asthma or COPD. No wheezing. No history of sleep apnea. No history of pulmonary embolism. No history of pleuritic chest pain. No history of hemoptysis. No symptoms suggestive of upper or lower respiratory tract infection. HEART: History of mitral valve prolapse present he history of hypertension present. No prior history of cardiac arrhythmia. Even now the patient is not aware of irregular heartbeat. She denies any rapid heartbeats. She has no syncope. She had a vasovagal syncopal episode as mentioned earlier. No prior such episodes. She had present denies any dizziness fatigue near syncope or recurrence of syncope. No history of congestive heart failure. No history of PND orthopnea or leg edema. She is very active. ABDOMEN: No history of GERD or peptic ulcer disease. No history of GI bleed. No history of ascites. No history of jaundice. No history of fatty food intolerance. No history of GI bleed. No history of altered bowel movements. No history of hematemesis or melena or hematochezia. ENDOCRINE: No history of diabetes mellitus. No history of thyroid disease. No history of heat or cold intolerance. No history of symptoms suggestive of hyper or hypothyroidism. No heat or cold intolerance. No history of hirsutism. No history of excessive sweating. RENAL: Denies history of chronic kidney disease. The patient does have stress incontinence. No history of recurrent UTIs. No hematuria pyuria or dysuria. MUSCULOSKELETAL: Denies collagen vascular disease. No significant arthritic symptoms. INSURANCE CLERK: No history of TIA or CVA. No history of headaches migraines or seizures. No history of gait imbalance. Does complain of forgetfulness. PSYCHIATRIC: No history of anxiety or depression. No history of suicidal ideation. No history of homicidal ideation. VASCULAR: No history Of buttock claudication. No history of DVT. HEMATOLOGICAL: No history of bleeding diathesis no history of clotting disorders. PHYSICAL EXAMINATION: The patient is well-built and well-nourished. At present in no acute distress. She is in atrial fibrillation with controlled ventricular response, albeit asymptomatic. 03/24/18 11:30 Temperature 97.4 F Temperature Oral Source Pulse Rate 69 Respiratory 18 Rate Blood Pressure 185/81 H Blood Pressure 115 Mean BP Location Right Arm BP Position Supine O2 Sat by Pulse 100 Oximetry Oxygen Delivery Room Air Method HEAD: Is atraumatic, and normocephalic. EYES: Pupils are equal round regular and reactive to light accommodation. Extraocular movements are normal. There is no palatal pallor. There is no scleral icterus. EARS: External auditory canals are clear. Tympanic memories are intact. There is no lesions on the penis. NOSE: There is no deviated nasal septum. There is no inflammation of the nasal mucous membrane. MOUTH: Mucous membranes of mouth are moist, tongue is moist. There is no ulcers in the mouth. There is no bleeding from the gums. THROAT: There is no redness of the throat, and no exudates in the throat. SKIN: There is no skin lesions or skin rashes. There is no petechia or ecchymosis. NECK although neck is supple the patient has considerable discomfort and tenderness on palpation of the left side of the neck. Movements of the neck does hurt. There is no lymphadenopathy. There is left carotid bruit present right there is a faint right carotid bruit. There is no lymphadenopathy there is no goiter. There is no accessory muscles of respiration use. Trachea central. LUNGS: Lungs are clear to auscultation percussion, without any rhonchi rales or wheezing. There is no chest wall tenderness. HEART: S1-S2 is heard there is no S3 gallop. There is no S4 gallop. S1 is of variable intensity. There is systolic murmur of mitral regurgitation and tricuspid regurgitation present. There is no murmur of aortic stenosis. There is no murmur of aortic regurgitation. There is no S3 gallop or S4 gallops. There is no rub. ABDOMEN: Soft. Nontender. Bowel sounds are well heard. There is no hepatosplenomegaly. There is no tender areas masses. EXTREMITIES: Femorals are well felt. There is no femoral bruits. Leg pulses well felt. There is no pedal edema. There is no DVT or cellulitis. There is no calf tenderness there is no cyanosis or clubbing. Capillary refill is normal. INSURANCE CLERK: The patient is conscious awake alert oriented x3 although slightly forgetful, and with no focal deficits. PSYCHIATRIC: The patient judgment and insight are intact. Her affect is normal. LABORATORY AND DIAGNOSTIC DATA: 03/23/18 03/23/18 03/23/18 10:11 10:11 10:16 WBC Hgb Hct Plt Count Sodium 136.3 L Potassium 3.7 Chloride 94 L Carbon Dioxide 31 H BUN 14 Creatinine 0.71 Est GFR (Non-Af Amer) > 60 Glucose 143 H POC Glucose 152 H Calcium 10.7 H Magnesium Total Bilirubin 1.5 H Direct Bilirubin 0.5 H Neonat Total Bilirubin Not Reportable Neonat Direct Bilirubin Not Reportable Neonat Indirect Bili Not Reportable AST 18 ALT 18 Alkaline Phosphatase 66 Creatine Kinase CK-MB (CK-2) Troponin I < 0.012 Total Protein 7.6 Albumin 4.4 TSH Free T4 Free T3 pg/mL 03/23/18 03/23/18 03/24/18 19:30 19:30 01:35 WBC Hgb Hct Plt Count Sodium Potassium Chloride Carbon Dioxide BUN Creatinine Est GFR (Non-Af Amer) Glucose POC Glucose Calcium Magnesium Total Bilirubin Direct Bilirubin Neonat Total Bilirubin Neonat Direct Bilirubin Neonat Indirect Bili AST ALT Alkaline Phosphatase Creatine Kinase 23 L 21 L CK-MB (CK-2) 0.55 Troponin I 0.019 Total Protein Albumin TSH Free T4 Free T3 pg/mL 03/24/18 03/24/18 03/24/18 01:35 07:30 07:50 WBC 6.6 Hgb 10.9 L Hct 29.7 L Plt Count 212 Sodium Potassium Chloride Carbon Dioxide BUN Creatinine Est GFR (Non-Af Amer) Glucose POC Glucose Calcium Magnesium Total Bilirubin Direct Bilirubin Neonat Total Bilirubin Neonat Direct Bilirubin Neonat Indirect Bili AST ALT Alkaline Phosphatase Creatine Kinase CK-MB (CK-2) 0.55 Troponin I 0.013 Total Protein Albumin TSH 0.71 Free T4 1.59 Free T3 pg/mL 2.96 03/24/18 03/24/18 07:50 07:50 WBC Hgb Hct Plt Count Sodium 137.4 Potassium 3.0 L* Chloride 95 L Carbon Dioxide 34 H BUN 10 Creatinine 0.74 Est GFR (Non-Af Amer) > 60 Glucose 116 H POC Glucose Calcium 9.8 Magnesium 1.4 L Total Bilirubin 1.3 Direct Bilirubin 0.4 Neonat Total Bilirubin Not Reportable Neonat Direct Bilirubin Not Reportable Neonat Indirect Bili Not Reportable AST 12 L ALT 19 Alkaline Phosphatase 57 Creatine Kinase 23 L CK-MB (CK-2) 0.69 Troponin I 0.021 Total Protein 6.3 Albumin 3.5 TSH Free T4 Free T3 pg/mL 03/23/18 09:58 Bupivacaine HCl/Pf [Sensorcaine 0.75% Mpf Inj 10 ml Sdv] 10 ml INJ NOW ONE Methylprednisolone Acetate [Depo-Medrol Inj 40 mg/1 ml Vial] 40 mg IM NOW ONE 03/23/18 18:30 Acetaminophen [Tylenol 325 mg Tablet] 650 mg PO Q4HP PRN Dextrose 50%-Water [Dextrose Inj 50% Syringe (25 gm/50 ml)] 12.5 gm IV PRN PRN Dextrose 50%-Water [Dextrose Inj 50% Syringe (25 gm/50 ml)] 25 gm IV PRN PRN Dextrose [Glutose 40% Gel 15 gm Tube] 15 gm PO PRN PRN Dextrose [Glutose 40% Gel 15 gm Tube] 30 gm PO PRN PRN Glucagon,Human Recombinant [Glucagen Inj 1 mg Vial] 1 mg SUBCUT PRN PRN Normal Saline 1000 ml [NaCl 0.9% 1000 ml IV Soln] 1,000 ml IV CONTINUOUS 03/23/18 22:00 Atorvastatin Calcium [Lipitor 10 mg Tablet] 5 mg PO QHS Heparin Sodium,Porcine [Heparin Inj 5,000 Units/ml 1 ml Syringe] 5,000 unit SUBCUT Q8 Normal Saline [Saline Flush 2.5 ml Monoject Prefil Syrin] 2.5 ml IV Q8 03/24/18 03:12 Flu Vacc [id number](6Mos Up)/Pf [Fluarix Adlt Quad Vac 0.5 ml Syr] 0.5 ml IM .DISCHARGE PRN 03/24/18 09:30 Losartan Potassium [Cozaar 50 mg Tablet] 50 mg PO NOW ONE 03/24/18 10:00 Aspirin [Ecotrin 81 mg EC Tablet] 81 mg PO DAILY Ketorolac Tromethamine [Toradol Inj/Pf 30 mg/1 ml Sdv] 30 mg IV NOW ONE Multivitamin [Tab-A-Eamon (Multiple Vitamin) Tablet] 1 tab PO DAILY Potassium Chloride [Klor-Con 10 Meq Capsule ER] 20 meq PO Q12 Prednisone [Deltasone 20 mg Tablet] 40 mg PO NOW ONE 03/24/18 12:00 Hydralazine HCl [Apresoline 50 mg Tablet] 50 mg PO Q6 03/24/18 18:00 Prednisone [Deltasone 20 mg Tablet] 20 mg PO BID First EKG:- ATRIAL FIBRILLATION REPOL ABNRM SUGGESTS ISCHEMIA, DIFFUSE LEADS BORDERLINE PROLONGED QT INTERVAL Second EKG: ATRIAL FIBRILLATION NONSPECIFIC REPOL ABNORMALITY, DIFFUSE LEADS Third EKG: ATRIAL FIBRILLATION NONSPECIFIC INTRAVENTRICULAR CONDUCTION DELAY PROBABLE LEFT VENTRICULAR HYPERTROPHY NONSPECIFIC ST-T CHANGES DIFFUSE. CHEST X-ray: There is cardiomegaly without failure. Her carotid Doppler shows a significant plaque in the left carotid bulb. Her E after neck shows a 16 mm nodule in the right thyroid gland. ECHOCARDIOGRAM: Normal left ventricular chamber size, mild LVH. Normal LV ejection fraction. There is moderate mitral regurgitation with mild mitral valve prolapse. There is moderate tricuspid regurgitation with moderate to severe pulmonary hypertension with right systolic pressure of 60 mm to 65 mmHg. Next IMPRESSION/RECOMMENDATION: 1. Syncope secondary to vasovagal reaction to pain. 2. Atrial fibrillation with earlier slow ventricular response, at present controlled ventricular response. Most likely bradycardia and the controlled ventricular response is secondary to the patient having taken beta-january at home. I have discussed long-term anticoagulation with the patient. But this was before the echo was performed. With a echo showing mitral valve disease in the form of mitral valve prolapse or mitral regurgitation Coumadin is the only choice of chronic anticoagulation. We discussed with Dr. Romain Oswald/attending physician covering him, and with the patient and the patient's family. Note that the patient has no contraindications for chronic anticoagulation. Continue monitoring the patient's heart rhythm on the night monitor, and will get a 30-day event monitor at home, after the patient is discharged. 3. Hypertension: Blood pressure not well controlled. 4. ELECTROLYTE imbalance in the form of hypokalemia and hypomagnesemia. Replace potassium and magnesium.. 5. Mitral valve prolapse with moderate mitral regurgitation. Continue GRETEL inhibitors, would use Cardizem instead of beta-blockers. 6. Tricuspid regurgitation with moderate to severe pulmonary hypertension.? Etiology. 7. Left sided neck pain: Most likely musculoskeletal. Note that the patient is on anti-inflammatory agents such as prednisone, and also analgesics. We will continue the same. Steroid is being tapered down to off. 8. Right thyroid nodule: This will be worked up as an outpatient. Note that the patient's thyroid function tests are within normal limits. Medications reviewed. Discussed management plan with Curly Nicolas MD. 60 minutes spent on this patient, with more than 50% of time spent in direct patient care. Medical decision making is of high complexity. Will follow with you.
[2018-03-25] MEDS: HYDRALAZINE HCL 50 MG TABLET PO SCH ×4 (00:33→18:13)
[2018-03-25] MEDS: NORMAL SALINE 1000 ML 1,000 ML IV PRN ×2 (00:34→13:51)
[2018-03-25 05:59] LABS: ABSOLUTE LYMPHOCYTES (AUTO) 0.8 10^3/uL (0.5-4.7); ABSOLUTE MONOCYTES (AUTO) 0.3 10^3/uL (0.1-1.4); ABSOLUTE NEUT (AUTO) 6.1 10^3/uL (1.7-8.2); BASOPHILS % (AUTO) 0.1 % (0-2); HEMATOCRIT 28.3 % (36.0-47.0); HEMOGLOBIN 10.7 g/dL (12.0-15.5); LYMPHOCYTES % (AUTO) 10.6 % (13-45); MEAN CORPUSCULAR HEMOGLOBIN 34.1 pg (27.0-33.4); MEAN CORPUSCULAR VOLUME 91 fl (80-97); MONOCYTES % (AUTO) 3.6 % (3-13); PLATELET COUNT 197 10^3/uL (150-450); RED BLOOD COUNT 3.13 10^6/uL (3.72-5.28); RED CELL DISTRIBUTION WIDTH 12.9 % (11.5-14.0); SEGMENTED NEUTROPHILS % (AUTO) 85.7 % (42-78); TOTAL CELLS COUNTED % (AUTO) 100 %; WHITE BLOOD COUNT 7.2 10^3/uL (4.0-10.5)
[2018-03-25 06:23] LABS: ALANINE AMINOTRANSFERASE 16 U/L (9-52); ALBUMIN 3.6 g/dL (3.5-5.0); ALKALINE PHOSPHATASE 57 U/L (38-126); ANION GAP 13 (5-19); ASPARTATE AMINO TRANSFERASE 15 U/L (14-36); BILIRUBIN,DIRECT 0.3 mg/dL (0.0-0.4); BILIRUBIN,TOTAL 0.6 mg/dL (0.2-1.3); BLOOD UREA NITROGEN 16 mg/dL (7-20); CALCIUM 9.8 mg/dL (8.4-10.2); CARBON DIOXIDE 26 mmol/L (22-30); CHLORIDE 100 mmol/L (98-107); GLUCOSE 150 mg/dL (75-110); SODIUM 139.1 mmol/L (137-145); TOTAL PROTEIN 6.3 g/dL (6.3-8.2)
[2018-03-25 06:26] LABS: MEAN CORPUSCULAR HGB CONC 37.7 g/dL (32.0-36.0)
[2018-03-25] MEDS: HEPARIN SOD (PORCINE) 5,000 UNIT/ML 1 ML SYRINGE SUBCUT SCH ×3 (06:33→22:11)
[2018-03-25 06:52] LABS: POTASSIUM 3.9 mmol/L (3.6-5.0)
[2018-03-25] MEDS: PREDNISONE 20 MG TABLET PO SCH ×2 (09:07→18:12)
[2018-03-25] MEDS: MULTIVITAMIN TABLET PO SCH (09:07)
[2018-03-25] MEDS: POTASSIUM CHLORIDE 10 MEQ CAPSULE.ER PO SCH ×2 (09:07→22:11)
[2018-03-25] MEDS: ASPIRIN 81 MG TABLET, ENT COATED PO SCH (09:07)
[2018-03-25] MEDS ORDERED: MAGNESIUM SULFATE/D5W 1 GM/100 ML RTUPB IV ONE (14:04)
--- NOTE | 2018-03-25 16:56 | PROGRESS NOTE E ---
Progress Note NAME: MARISELA PATEL : 1935 AGE: 82Y DATE: 03/25/2018 ROOM: 318 SUBJECTIVE: The patient is currently sitting up in bed. She states she feels better today. The patient is in good spirits. She denies any nausea, vomiting, diarrhea. No shortness of breath, dizziness, chest pain. No fevers or chills. No heart palpitations. The patient has been afebrile, blood pressure has been in a good range, and the patient does not voice any other concerns at this time. BRIEF HISTORY The patient is an 82-year-old female with a past medical history of mitral regurg as well as prolapse. The patient presented to the emergency department with neck pain and sustained a syncopal episode; please see Dr. Nicolas's H and P regarding the details of this. The patient was found to have new-onset atrial fibrillation and has been admitted to the hospital for management. The patient has been seen and evaluated by Dr. Jacobson. Much discussion has had to be made regarding anticoagulation as the patient is highly reluctant to this. Given the patient's history recently of dyspnea and positive D-dimer, a V/Q scan has been ordered and results are pending. No other concerns are voiced at this time. REVIEW OF SYSTEMS: The rest of the review of systems is negative. MEDICATIONS: Medications have been reviewed. OBJECTIVE: GENERAL: The patient is an 82-year-old female who is awake, alert, and oriented to person, place, time, and situation. She is verbal, conversational, does not appear to be in any acute distress. VITAL SIGNS: As follows: Temperature is 98.2, pulse 77, respirations 18, blood pressure 172/85, oxygen saturation is 99% on room air. SKIN: Warm and dry. No rash. She is not diaphoretic. HEENT: Pupils equal, round, and reactive to light and accommodation. Conjunctivae pink. No signs of JVP. CARDIOVASCULAR: Heart is irregularly irregular. There is no rub. CHEST: Clear, symmetrical, unlabored. ABDOMEN: Soft, nontender, nondistended. BACK: No CVA tenderness or sacral edema. EXTREMITIES: No clubbing, cyanosis, edema. PSYCHIATRIC: Appropriate affect. Pleasant mood. DIAGNOSTICS: Lab values are as follows. Hematology obtained on 03/25/2018: WBCs are 7.2, hemoglobin is 10.7, hematocrit is 28.3, platelet count is 197,000. Chemistry obtained on 03/25/2018: Sodium is 139, potassium is 3.9, chloride 100, carbon dioxide 26, BUN 16, creatinine 0.70, glucose 150, calcium is 9.8, magnesium is 1.3, bilirubin is 0.6, AST 15, ALT 16, alk phos 57, total protein 6.3, albumin 3.6. IMPRESSION AND PLAN: 1. HYPOMAGNESEMIA. Will replete this. 2. NEW-ONSET ATRIAL FIBRILLATION. The patient is rate controlled. The patient would benefit from Coumadin given the severity of her valvular disease. Dr. Jacobson has discussed the case with [facility] Surgery at [facility]. In the interim, will obtain V/Q scan to evaluate for chronic PE. 3. HYPERTENSION. Blood pressures have been somewhat elevated. Will start the patient on an ARB as she did respond to this yesterday according to records. 4. HYPERLIPIDEMIA. Will continue statin. 5. SYNCOPE. The patient has had no further episodes of syncope, most likely was a vasovagal response. The patient is well hydrated. Will actually discontinue her IV fluids today. DISPOSITION: THE PATIENT IS A FULL CODE. Pending the patient's symptomatology and diagnostic findings, will re-evaluate in the a.m. Time spent on this followup, including assessment/plan, physical examination, patient education, review of records, and family meeting, is 25 minutes. DICTATING PHYSICIAN: LOLLY SARABIA NP [id number] Y#: [id number] ID: [id number] JOB#: [id number] ACCT: [id number] cc: >
[2018-03-25] MEDS: LOSARTAN POTASSIUM 50 MG TABLET PO SCH (18:13)
[2018-03-25] MEDS: ATORVASTATIN CALCIUM 10 MG TABLET PO SCH (22:12)
--- NOTE | 2018-03-25 22:38 | EKG REPORT ---
SEVERITY:- ABNORMAL ECG - ATRIAL FIBRILLATION NONSPECIFIC REPOL ABNORMALITY, DIFFUSE LEADS : Confirmed by: Neftali Blake MD 25-Mar-2018 22:37:23
--- NOTE | 2018-03-25 23:43 | Progress Note ---
Provider Note Provider Note: CARDIOLOGY PROGRESS NOTES by Dr. Thompson assessment: On 03/25/2018. SUBJECTIVE: The patient continues to be in atrial fibrillation with slow ventricular response. The heart rate is in the 70s. She denies any palpitations. There is no chest pain or discomfort. There is no PND orthopnea. The patient denies any shortness of breath. There is no TIA or CVA symptoms. There is no pedal edema. There is no dizziness syncope or near syncope. PHYSICAL EXAMINATION: The patient is well-built and well-nourished. She is in no acute distress. She is well-groomed. Selected Entries 03/25/18 11:15 Temperature 98.2 F Temperature Oral Source Pulse Rate 77 Respiratory 18 Rate Blood Pressure 172/85 H [Left Upper Arm ] Blood Pressure 114 Mean [Left Upper Arm] Blood Pressure Supine Position [Left Upper Arm] O2 Sat by Pulse 99 Oximetry Oxygen Delivery Room Air Method ( includes room air) HEAD: Is atraumatic, and normocephalic. EYES: Pupils are equal round regular and reactive to light accommodation. Extraocular movements are normal. There is no palatal pallor. There is no scleral icterus. EARS: External auditory canals are clear. Tympanic memories are intact. There is no lesions on the penis. NOSE: There is no deviated nasal septum. There is no inflammation of the nasal mucous membrane. MOUTH: Mucous membranes of mouth are moist, tongue is moist. There is no ulcers in the mouth. There is no bleeding from the gums. THROAT: There is no redness of the throat, and no exudates in the throat. SKIN: There is no skin lesions or skin rashes. There is no petechia or ecchymosis. NECK although neck is supple the patient has considerable discomfort and tenderness on palpation of the left side of the neck. Movements of the neck does hurt. There is no lymphadenopathy. There is left carotid bruit present right there is a faint right carotid bruit. There is no lymphadenopathy there is no goiter. There is no accessory muscles of respiration use. Trachea central. LUNGS: Lungs are clear to auscultation percussion, without any rhonchi rales or wheezing. There is no chest wall tenderness. HEART: S1-S2 is heard there is no S3 gallop. There is no S4 gallop. S1 is of variable intensity. There is systolic murmur of mitral regurgitation and tricuspid regurgitation present. There is no murmur of aortic stenosis. There is no murmur of aortic regurgitation. There is no S3 gallop or S4 gallops. There is no rub. ABDOMEN: Soft. Nontender. Bowel sounds are well heard. There is no hepatosplenomegaly. There is no tender areas masses. EXTREMITIES: Femorals are well felt. There is no femoral bruits. Leg pulses well felt. There is no pedal edema. There is no DVT or cellulitis. There is no calf tenderness there is no cyanosis or clubbing. Capillary refill is normal. 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 PSYCHIATRIC: The patient judgment and insight are intact. Her affect is normal. 03/25/18 03/25/18 05:29 05:29 WBC 7.2 Hgb 10.7 L Hct 28.3 L Plt Count 197 Sodium 139.1 Potassium 3.9 Chloride 100 Carbon Dioxide 26 Anion Gap 13 BUN 16 Creatinine 0.70 Est GFR (Non-Af Amer) > 60 Glucose 150 H Calcium 9.8 Magnesium 1.3 L Total Bilirubin 0.6 Direct Bilirubin 0.3 Neonat Total Bilirubin Not Reportable Neonat Direct Bilirubin Not Reportable Neonat Indirect Bili Not Reportable AST 15 ALT 16 Alkaline Phosphatase 57 Total Protein 6.3 Albumin 3.6 IMPRESSION/RECOMMENDATION: 1. Syncope secondary to vasovagal reaction to pain. 2. Atrial fibrillation with earlier slow ventricular response, at present controlled ventricular response. Most likely bradycardia and the controlled ventricular response is secondary to the patient having taken beta-january at home. I have discussed long-term anticoagulation with the patient. But this was before the echo was performed. With a echo showing mitral valve disease in the form of mitral valve prolapse or mitral regurgitation Coumadin is the only choice of chronic anticoagulation. We discussed with Dr. Romain Oswald/attending physician covering him, and with the patient and the patient's family. Note that the patient has no contraindications for chronic anticoagulation. Continue monitoring the patient's heart rhythm on the monitor technician, and will get a 30-day event monitor at home, after the patient is discharged. 3. Hypertension: Blood pressure not well controlled. 4. ELECTROLYTE imbalance in the form of hypomagnesemia. Replace magnesium. 5. Mitral valve prolapse with moderate mitral regurgitation. Continue GRETEL inhibitors, would use Cardizem instead of beta-blockers. 6. Tricuspid regurgitation with moderate to severe pulmonary hypertension.? Etiology. We will check a ventilation/perfusion scan to see if the patient has chronic pulmonary emboli. If this is positive then would start the patient on full dose Lovenox, and Coumadin. If this is negative then would start the patient Coumadin. 7. Left sided neck pain: Most likely musculoskeletal. Note that the patient is on anti-inflammatory agents such as prednisone, and also analgesics. We will continue the same. Steroid is being tapered down to off. 8. Right thyroid nodule: This will be worked up as an outpatient. Note that the patient's thyroid function tests are within normal limits. Medications reviewed. Discussed management plan with Curly Nicolas MD. 40 minutes spent on this patient, with more than 50% of time spent in direct patient care. Medical decision making is of high complexity. Will follow with you.
[2018-03-26] MEDS: HYDRALAZINE HCL 50 MG TABLET PO SCH ×4 (00:30→18:13)
[2018-03-26 05:34] LABS: ABSOLUTE LYMPHOCYTES (AUTO) 0.9 10^3/uL (0.5-4.7); ABSOLUTE MONOCYTES (AUTO) 0.4 10^3/uL (0.1-1.4); ABSOLUTE NEUT (AUTO) 8.2 10^3/uL (1.7-8.2); LYMPHOCYTES % (AUTO) 9.7 % (13-45); MEAN CORPUSCULAR HGB CONC 36.7 g/dL (32.0-36.0); MEAN CORPUSCULAR VOLUME 93 fl (80-97); MONOCYTES % (AUTO) 4.3 % (3-13); PLATELET COUNT 236 10^3/uL (150-450); RED BLOOD COUNT 3.25 10^6/uL (3.72-5.28); RED CELL DISTRIBUTION WIDTH 13.5 % (11.5-14.0); TOTAL CELLS COUNTED % (AUTO) 100 %; WHITE BLOOD COUNT 9.5 10^3/uL (4.0-10.5)
[2018-03-26 05:57] LABS: ANION GAP 11 (5-19); BLOOD UREA NITROGEN 20 mg/dL (7-20); CALCIUM 10.1 mg/dL (8.4-10.2); CARBON DIOXIDE 26 mmol/L (22-30); CHLORIDE 102 mmol/L (98-107); GLUCOSE 143 mg/dL (75-110); POTASSIUM 4.4 mmol/L (3.6-5.0); SODIUM 139.4 mmol/L (137-145)
[2018-03-26] MEDS: HEPARIN SOD (PORCINE) 5,000 UNIT/ML 1 ML SYRINGE SUBCUT SCH ×3 (06:11→21:30)
[2018-03-26] MEDS: POTASSIUM CHLORIDE 10 MEQ CAPSULE.ER PO SCH ×2 (09:05→21:31)
[2018-03-26] MEDS: PREDNISONE 20 MG TABLET PO SCH ×2 (09:06→18:13)
[2018-03-26] MEDS: ASPIRIN 81 MG TABLET, ENT COATED PO SCH (09:06)
[2018-03-26] MEDS: LOSARTAN POTASSIUM 50 MG TABLET PO SCH (09:06)
[2018-03-26] MEDS: MULTIVITAMIN TABLET PO SCH (09:06)
--- NOTE | 2018-03-26 12:01 | RADIOLOGY REPORT (SQ) ---
EXAM DESCRIPTION: NM LUNG VENT/PERF SCAN COMPLETED DATE/TIME: 03/26/2018 11:51 am REASON FOR STUDY: new Arnel. [email or web address] COMPARISON: Chest radiograph RADIONUCLIDE AND DOSE: 5.37 millicuries TC-99m MAA Intravenous 32.7 millicuries TC-99m DTPA Inhaled aerosol TECHNIQUE: Eight views of the lungs acquired post ventilation of DTPA aerosol. Eight matching views of the lungs acquired following injection of MAA. LIMITATIONS: None. FINDINGS: VENTILATION: Symmetric and homogeneous distribution of DTPA aerosol during ventilatory pha se. No significant areas of photopenia. PERFUSION: Perfusion images with normal homogenous activity and no wedge-shaped or segmental defects. No ventilation-perfusion mismatches. OTHER: No other significant finding. IMPRESSION: NORMAL VENTILATION-PERFUSION LUNG SCAN. NEGATIVE FOR PULMONARY EMBOLI. TECHNICAL DOCUMENTATION: JOB ID: [id number] [employer]- All Rights Reserved Reading location - IP/workstation name: [email or web address]
[2018-03-26 14:07] LABS: INTERNATIONAL RATION (INR) 0.96; PROTHROMBIN TIME 13.3 SEC (11.4-15.4)
--- NOTE | 2018-03-26 17:03 | PDOC PROGRESS REPORT ---
Subjective Progress Note for:: 03/26/18 Subjective:: No adverse events overnight. No new complaints. No chest pain or shortness of breath. No feelings of any palpitations. Blood pressures been elevated, her last one was fairly high but she typically runs around a systolic of 170. Heart rates have been low at rest but we have not seen what they do when she ambulates. Reason For Visit: NEW ONSET AFIB, SYNCOPE VASOVAGAL, HTN, Physical Exam Vital Signs: Temp Pulse Resp BP Pulse Ox 97.9 F 78 12 209/87 H 98 03/26/18 12:00 03/26/18 14:00 03/26/18 12:00 03/26/18 12:00 03/26/18 12:00 Intake & Output 03/25/18 03/26/18 03/27/18 06:59 06:59 06:59 Intake Total 2340 2017 Output Total 2 Balance 2338 2017 Weight 62.3 kg 63 kg General appearance: PRESENT: no acute distress, cooperative, disheveled Respiratory exam: PRESENT: clear to auscultation martha, symmetrical, unlabored. ABSENT: chest wall tenderness, rales, rhonchi, tachypnea, wheezes Cardiovascular exam: PRESENT: irregular rhythm GI/Abdominal exam: PRESENT: normal bowel sounds, soft. ABSENT: distended, guarding, rebound, tenderness Extremities exam: ABSENT: clubbing, pedal edema Musculoskeletal exam: PRESENT: normal inspection. ABSENT: deformity Neurological exam: PRESENT: alert, awake, oriented to person, oriented to place Skin exam: PRESENT: dry, warm Results Laboratory Results: 03/26/18 05:02 03/26/18 05:02 03/26/18 03/26/18 05:02 05:02 WBC 9.5 RBC 3.25 L Hgb 11.0 L Hct 30.0 L MCV 93 MCH 34.0 H MCHC 36.7 H RDW 13.5 Plt Count 236 Seg Neutrophils % 86.0 H Lymphocytes % 9.7 L Monocytes % 4.3 Eosinophils % 0.0 Basophils % 0.0 Absolute Neutrophils 8.2 Absolute Lymphocytes 0.9 Absolute Monocytes 0.4 Absolute Eosinophils 0.0 Absolute Basophils 0.0 Sodium 139.4 Potassium 4.4 Chloride 102 Carbon Dioxide 26 Anion Gap 11 BUN 20 Creatinine 0.77 Est GFR ( Amer) > 60 Est GFR (Non-Af Amer) > 60 Glucose 143 H Calcium 10.1 Magnesium 1.7 03/23/18 03/23/18 03/24/18 19:30 19:30 01:35 Creatine Kinase 23 L 21 L CK-MB (CK-2) 0.55 Troponin I 0.019 03/24/18 03/24/18 03/24/18 01:35 07:50 07:50 Creatine Kinase 23 L CK-MB (CK-2) 0.55 0.69 Troponin I 0.013 0.021 Impressions: Carotid Doppler Study 03/23/18 00:00 IMPRESSION: NO HEMODYNAMICALLY SIGNIFICANT STENOSIS. Chest X-Ray 03/23/18 10:23 IMPRESSION: HEART ENLARGED WITHOUT FAILURE. NO OTHER SIGNIFICANT RADIOGRAPHIC FINDING IN THE CHEST. Head CT 03/23/18 10:23 IMPRESSION: CHRONIC CHANGES OF ATROPHY AND MICROVASCULAR ISCHEMIA. NO ACUTE PROCESS. EVIDENCE OF ACUTE STROKE: NO. Neck CTA 03/23/18 15:30 IMPRESSION: 1. Tortuous right internal carotid. No significant stenotic lesion. 2. There is a very prominent plaque in the carotid bulb at the origin the internal carotid. Significant stenosis is suggested. Ultrasound is recommended. 3. There is a 16 mm low-density lesion in the right lobe of the thyroid. Lung Scan-VQ NM 03/26/18 00:00 IMPRESSION: NORMAL VENTILATION-PERFUSION LUNG SCAN. NEGATIVE FOR PULMONARY EMBOLI. Assessment & Plan - Diagnosis (1) Atrial fibrillation with slow ventricular response Is this a current diagnosis for this admission?: Yes Plan: Resting heart rates in the 60s and 70s but we need to ambulate her to see if her heart rate picks up with activity. We will plan to do this later today. Cardiology has been consulted. There is been some talk of putting her on some sort of rate controlling agent but right now her heart rate is low enough that cardiology wants to hold off on a beta-january or calcium channel january. Dr. Chong has recommended anticoagulation with warfarin due to her mitral valve prolapse and concomittent insufficiency. She is being bridged with Lovenox. - Time Time Spent with patient: 25-34 minutes
[2018-03-26] MEDS: ATORVASTATIN CALCIUM 10 MG TABLET PO SCH (21:31)
[2018-03-26] MEDS: WARFARIN SODIUM 5 MG TABLET PO SCH (21:31)
--- NOTE | 2018-03-26 22:12 | Progress Note ---
Provider Note Provider Note: CARDIOLOGY PROGRESS NOTES by Dr. Laverne Jacobson on 03/26/2018. SUBJECTIVE: The patient denies any chest pain or discomfort. She still is in atrial fibrillation with a ventricular response of slow. Even on ambulating to the bathroom her heart rate remains in the 80s. There is no recurrence of syncope. The patient denies any PND orthopnea. She denies any palpitations. The patient's blood pressure is still elevated. She may need a third antihypertensive. There is no TIA or CVA symptoms. Her ventilation perfusion lung scan was negative for any emboli. PHYSICAL EXAMINATION: The patient is well-built and well-nourished, in no acute distress. Selected Entries 03/26/18 03/26/18 10:00 12:00 Temperature 97.9 F Temperature Oral Source Pulse Rate 81 Respiratory 12 Rate Blood Pressure 209/87 H [Left Upper Arm ] Blood Pressure 127 Mean [Left Upper Arm] O2 Sat by Pulse 98 Oximetry Oxygen Delivery Room Air Method ( includes room air) HEAD: Is atraumatic, and normocephalic. EYES: Pupils are equal round regular and reactive to light accommodation. Extraocular movements are normal. There is no palatal pallor. There is no scleral icterus. EARS: External auditory canals are clear. Tympanic memories are intact. There is no lesions on the penis. NOSE: There is no deviated nasal septum. There is no inflammation of the nasal mucous membrane. MOUTH: Mucous membranes of mouth are moist, tongue is moist. There is no ulcers in the mouth. There is no bleeding from the gums. THROAT: There is no redness of the throat, and no exudates in the throat. SKIN: There is no skin lesions or skin rashes. There is no petechia or ecchymosis. NECK although neck is supple the patient has considerable discomfort and tenderness on palpation of the left side of the neck. Movements of the neck does hurt. There is no lymphadenopathy. There is left carotid bruit present right there is a faint right carotid bruit. There is no lymphadenopathy there is no goiter. There is no accessory muscles of respiration use. Trachea central. LUNGS: Lungs are clear to auscultation percussion, without any rhonchi rales or wheezing. There is no chest wall tenderness. HEART: S1-S2 is heard there is no S3 gallop. There is no S4 gallop. S1 is of variable intensity. There is systolic murmur of mitral regurgitation and tricuspid regurgitation present. There is no murmur of aortic stenosis. There is no murmur of aortic regurgitation. There is no S3 gallop or S4 gallops. There is no rub. ABDOMEN: Soft. Nontender. Bowel sounds are well heard. There is no hepatosplenomegaly. There is no tender areas masses. EXTREMITIES: Femorals are well felt. There is no femoral bruits. Leg pulses well felt. There is no pedal edema. There is no DVT or cellulitis. There is no calf tenderness there is no cyanosis or clubbing. Capillary refill is normal. 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 PSYCHIATRIC: The patient judgment and insight are intact. Her affect is normal. 03/26/18 03/26/18 05:02 05:02 WBC 9.5 Hgb 11.0 L Hct 30.0 L Plt Count 236 Sodium 139.4 Potassium 4.4 Chloride 102 Carbon Dioxide 26 BUN 20 Creatinine 0.77 Est GFR (Non-Af Amer) > 60 Glucose 143 H Calcium 10.1 Magnesium 1.7 The patient's ventilation perfusion scan is negative for pulmonary emboli. IMPRESSION/RECOMMENDATION: 1. Syncope secondary to vasovagal reaction to pain. 2. Atrial fibrillation with earlier slow ventricular response, at present controlled ventricular response. Most likely bradycardia and the controlled ventricular response is secondary to the patient having taken beta-january at home. With a echo showing mitral valve disease in the form of mitral valve prolapse or mitral regurgitation Coumadin is the only choice of chronic anticoagulation. Discussed with attending physician covering him, and with the patient and the patient's family. Note that the patient has no contraindications for chronic anticoagulation. Continue monitoring the patient' s heart rhythm on the court recording monitor, and will get a 30-day event monitor at home, after the patient is discharged. Because of the patient the bleeding complications and need for blood tests such as PT/INR to monitor the Coumadin levels on the patient, and Coumadin will be started from tonight. 3. Hypertension: Blood pressure not well controlled. This may be secondary to the effect of prednisone. Will start the patient on Procardia if the heart rate still remains in the normal range. If the heart rate goes up then will start the patient on a calcium channel january such as Cardizem or verapamil. 4. ELECTROLYTE imbalance in the form of hypokalemia and hypomagnesemia. Replace potassium and magnesium.. 5. Mitral valve prolapse with moderate mitral regurgitation. Continue GRETEL inhibitors, would use Cardizem instead of beta-blockers. 6. Tricuspid regurgitation with moderate to severe pulmonary hypertension.? Etiology. 7. Left sided neck pain: Most likely musculoskeletal. Note that the patient is on anti-inflammatory agents such as prednisone, and also analgesics. We will continue the same. Steroid is being tapered down to off. 8. Right thyroid nodule: This will be worked up as an outpatient. Note that the patient's thyroid function tests are within normal limits. Medications reviewed. Discussed management plan with caregiving providers on the case. 40 minutes spent on this patient, with more than 50% of time spent in direct patient care. Medical decision making is of high complexity. Will follow with you.
[2018-03-27] MEDS: HYDRALAZINE HCL 50 MG TABLET PO SCH ×4 (00:59→22:03)
[2018-03-27] MEDS: HEPARIN SOD (PORCINE) 5,000 UNIT/ML 1 ML SYRINGE SUBCUT SCH ×3 (05:24→22:04)
[2018-03-27 06:27] LABS: HEMATOCRIT 32.5 % (36.0-47.0); HEMOGLOBIN 11.7 g/dL (12.0-15.5); MEAN CORPUSCULAR HEMOGLOBIN 33.6 pg (27.0-33.4); MEAN CORPUSCULAR HGB CONC 36.1 g/dL (32.0-36.0); MEAN CORPUSCULAR VOLUME 93 fl (80-97); PLATELET COUNT 255 10^3/uL (150-450); RED BLOOD COUNT 3.48 10^6/uL (3.72-5.28); RED CELL DISTRIBUTION WIDTH 13.6 % (11.5-14.0); WHITE BLOOD COUNT 9.7 10^3/uL (4.0-10.5)
[2018-03-27] MEDS ORDERED: PREDNISONE 20 MG TABLET PO SCH (08:31)
--- NOTE | 2018-03-27 08:42 | PDOC PROGRESS REPORT ---
Subjective Progress Note for:: 03/27/18 Subjective:: The patient is doing much better. Her neck has improved. He appears to be slightly more confused which may be related to prednisone. He is tolerating other medications well. The family has discussed with the business economist about the Coumadin. Reason For Visit: NEW ONSET AFIB, SYNCOPE VASOVAGAL, HTN, Physical Exam Vital Signs: Temp Pulse Resp BP Pulse Ox 97.8 F 65 20 189/65 H 98 03/27/18 08:00 03/27/18 08:00 03/27/18 08:00 03/27/18 08:00 03/27/18 08:00 Intake & Output 03/26/18 03/27/18 03/28/18 06:59 06:59 06:59 Intake Total 2017 1337 Output Total 50 Balance 2017 1287 Weight 63 kg 60.7 kg General appearance: PRESENT: mild distress Eye exam: PRESENT: conjunctiva pink Neck exam: ABSENT: carotid bruit, JVD Cardiovascular exam: PRESENT: irregular rhythm, +S1, +S2, systolic murmur GI/Abdominal exam: PRESENT: normal bowel sounds, soft Extremities exam: PRESENT: full ROM Musculoskeletal exam: PRESENT: ambulatory Neurological exam: PRESENT: alert, awake Additional comments: Mild confusion. Most probably related to worsening of the dementia with high doses of prednisone Results Laboratory Results: 03/27/18 06:07 03/26/18 05:02 03/27/18 06:07 WBC 9.7 RBC 3.48 L Hgb 11.7 L Hct 32.5 L MCV 93 MCH 33.6 H MCHC 36.1 H RDW 13.6 Plt Count 255 03/23/18 03/23/18 03/24/18 19:30 19:30 01:35 Creatine Kinase 23 L 21 L CK-MB (CK-2) 0.55 Troponin I 0.019 03/24/18 03/24/18 03/24/18 01:35 07:50 07:50 Creatine Kinase 23 L CK-MB (CK-2) 0.55 0.69 Troponin I 0.013 0.021 Impressions: Carotid Doppler Study 03/23/18 00:00 IMPRESSION: NO HEMODYNAMICALLY SIGNIFICANT STENOSIS. Chest X-Ray 03/23/18 10:23 IMPRESSION: HEART ENLARGED WITHOUT FAILURE. NO OTHER SIGNIFICANT RADIOGRAPHIC FINDING IN THE CHEST. Head CT 03/23/18 10:23 IMPRESSION: CHRONIC CHANGES OF ATROPHY AND MICROVASCULAR ISCHEMIA. NO ACUTE PROCESS. EVIDENCE OF ACUTE STROKE: NO. Neck CTA 03/23/18 15:30 IMPRESSION: 1. Tortuous right internal carotid. No significant stenotic lesion. 2. There is a very prominent plaque in the carotid bulb at the origin the internal carotid. Significant stenosis is suggested. Ultrasound is recommended. 3. There is a 16 mm low-density lesion in the right lobe of the thyroid. Lung Scan-VQ NM 03/26/18 00:00 IMPRESSION: NORMAL VENTILATION-PERFUSION LUNG SCAN. NEGATIVE FOR PULMONARY EMBOLI. Assessment & Plan - Diagnosis (1) Hypertension Qualifiers: Hypertension type: essential hypertension Qualified Code(s): I10 - Essential (primary) hypertension Is this a current diagnosis for this admission?: Yes Plan: We will readjust the medications (2) Hyperlipemia Is this a current diagnosis for this admission?: Yes (3) Atrial fibrillation with slow ventricular response Is this a current diagnosis for this admission?: Yes Plan: Rate control. Will continue with Coumadin (4) Carotid stenosis Qualifiers: Laterality: unspecified laterality Qualified Code(s): I65.29 - Occlusion and stenosis of unspecified carotid artery Is this a current diagnosis for this admission?: Yes (5) Syncope Qualifiers: Syncope type: vasovagal syncope Qualified Code(s): R55 - Syncope and collapse Is this a current diagnosis for this admission?: Yes Plan: Most probably vasovagal which have been triggered by trigger point injection and possibly exacerbated by new onset of atrial fibrillation (6) Torticollis Is this a current diagnosis for this admission?: Yes Plan: Improved continue stretching and weaning of the prednisone (7) Cervical radiculopathy Is this a current diagnosis for this admission?: Yes Plan: Improved continue weaning off the prednisone (8) Mild dementia Is this a current diagnosis for this admission?: Yes Plan: We will continue current treatment. Will reevaluate once the patient is off the prednisone
[2018-03-27] MEDS: POTASSIUM CHLORIDE 10 MEQ CAPSULE.ER PO SCH ×2 (11:03→22:02)
[2018-03-27] MEDS: LOSARTAN POTASSIUM 50 MG TABLET PO SCH (11:04)
[2018-03-27] MEDS: MULTIVITAMIN TABLET PO SCH (11:04)
[2018-03-27] MEDS: ASPIRIN 81 MG TABLET, ENT COATED PO SCH (11:04)
[2018-03-27] MEDS: PREDNISONE 10 MG TABLET PO SCH ×2 (11:04→17:47)
[2018-03-27] MEDS: HYDROCHLOROTHIAZIDE 25 MG TABLET PO SCH (11:04)
[2018-03-27] MEDS: MAGNESIUM OXIDE 400 MG TABLET PO SCH (11:07)
[2018-03-27 14:05] LABS: APPEARANCE,URINE CLEAR; BILIRUBIN,URINE NEGATIVE (NEGATIVE); COLOR,URINE STRAW; GLUCOSE, URINE NEGATIVE (NEGATIVE); KETONES,URINE NEGATIVE (NEGATIVE); LEUKOCYTE ESTERASE,URINE NEGATIVE (NEGATIVE); NITRITE,URINE NEGATIVE (NEGATIVE); PROTEIN,URINE NEGATIVE (NEGATIVE); URINE SPECIFIC GRAVITY 1.009; UROBILINOGEN,URINE NEGATIVE mg/dL (<2.0)
--- NOTE | 2018-03-27 20:48 | Progress Note ---
Provider Note Provider Note: CARDIOLOGY PROGRESS NOTES BY DR. Laverne Jacobson on 03/27/2018. SUBJECTIVE: The patient denies any chest pain or discomfort. She continues to be in atrial fibrillation, with a controlled ventricular response. She denies any PND orthopnea or leg edema. She denies any palpitations. There is no ventricular arrhythmias seen on the monitor. Her blood pressure medications have been increased by Dr. Nicolas earlier, but the patient's blood pressure still not well controlled.. There is no recurrence of syncope. There is no dizziness near syncope felt by the patient. PHYSICAL EXAMINATION: The patient is well-built and well-nourished. She is in no acute distress Selected Entries 03/27/18 11:16 Temperature 97.7 F Temperature Oral Source Pulse Rate 83 Respiratory 20 Rate Blood Pressure 167/85 H Blood Pressure 112 Mean BP Location Right Arm BP Position Supine O2 Sat by Pulse 99 Oximetry Oxygen Delivery Room Air Method HEAD: Is atraumatic, and normocephalic. EYES: Pupils are equal round regular and reactive to light accommodation. Extraocular movements are normal. There is no palatal pallor. There is no scleral icterus. EARS: External auditory canals are clear. Tympanic memories are intact. There is no lesions on the penis. NOSE: There is no deviated nasal septum. There is no inflammation of the nasal mucous membrane. MOUTH: Mucous membranes of mouth are moist, tongue is moist. There is no ulcers in the mouth. There is no bleeding from the gums. THROAT: There is no redness of the throat, and no exudates in the throat. SKIN: There is no skin lesions or skin rashes. There is no petechia or ecchymosis. NECK although neck is supple the patient has considerable discomfort and tenderness on palpation of the left side of the neck. Movements of the neck does hurt. There is no lymphadenopathy. There is left carotid bruit present right there is a faint right carotid bruit. There is no lymphadenopathy there is no goiter. There is no accessory muscles of respiration use. Trachea central. LUNGS: Lungs are clear to auscultation percussion, without any rhonchi rales or wheezing. There is no chest wall tenderness. HEART: S1-S2 is heard there is no S3 gallop. There is no S4 gallop. S1 is of variable intensity. There is systolic murmur of mitral regurgitation and tricuspid regurgitation present. There is no murmur of aortic stenosis. There is no murmur of aortic regurgitation. There is no S3 gallop or S4 gallops. There is no rub. ABDOMEN: Soft. Nontender. Bowel sounds are well heard. There is no hepatosplenomegaly. There is no tender areas masses. EXTREMITIES: Femorals are well felt. There is no femoral bruits. Leg pulses well felt. There is no pedal edema. There is no DVT or cellulitis. There is no calf tenderness there is no cyanosis or clubbing. Capillary refill is normal. ENVIRONMENTAL EPIDEMIOLOGIST: The patient is conscious awake alert oriented x3 although slightly forgetful, and with no focal deficits. PSYCHIATRIC: The patient judgment and insight are intact. Her affect is peng 03/26/18 03/27/18 03/27/18 13:38 06:07 13:10 WBC 9.7 Hgb 11.7 L Hct 32.5 L Plt Count 255 PT 13.3 INR 0.96 Stool Occult Blood POSITIVE IMPRESSION/RECOMMENDATION: 1. Syncope secondary to vasovagal reaction to pain. 2. Atrial fibrillation with earlier slow ventricular response, at present controlled ventricular response. Most likely bradycardia and the controlled ventricular response is secondary to the patient having taken beta-january at home. With a echo showing mitral valve disease in the form of mitral valve prolapse or mitral regurgitation Coumadin is the only choice of chronic anticoagulation. Discussed with attending physician covering him, and with the patient and the patient's family. Note that the patient has no contraindications for chronic anticoagulation. Continue monitoring the patient' s heart rhythm on the monitor and storage bin tender, and will get a 30-day event monitor at home, after the patient is discharged. Because of the patient the bleeding complications and need for blood tests such as PT/INR to monitor the Coumadin levels on the patient, and Coumadin will be started from [facility]. 3. Hypertension: Blood pressure not well controlled. This may be secondary to the effect of prednisone. Will start the patient on Procardia if the heart rate still remains in the normal range. If the heart rate goes up then will start the patient on a calcium channel january such as Cardizem or verapamil. Since the patient's heart rate is controlled, will add amlodipine 5 mg p.o. every 12 hours, since in spite of the addition of an increased dosages of hydralazine and Cozaar, the patient's blood pressure still is not well controlled. Also will get bilateral renal artery Dopplers to assess for possible renal artery stenosis. 4. ELECTROLYTE imbalance in the form of hypokalemia and hypomagnesemia. Replace potassium and magnesium.. 5. Mitral valve prolapse with moderate mitral regurgitation. Continue GRETEL inhibitors, would use Cardizem instead of beta-blockers. 6. Tricuspid regurgitation with moderate to severe pulmonary hypertension.? Etiology. 7. Left sided neck pain: Most likely musculoskeletal. Note that the patient is on anti-inflammatory agents such as prednisone, and also analgesics. We will continue the same. Steroid is being tapered down to off. 8. Right thyroid nodule: This will be worked up as an outpatient. Note that the patient's thyroid function tests are within normal limits. Medications reviewed. Medications added discussed management plan with caregiving providers on the case. 40 minutes spent on this patient, with more than 50% of time spent in direct patient care. Medical decision making is of high complexity. Will follow with you.
[2018-03-27] MEDS: ATORVASTATIN CALCIUM 10 MG TABLET PO SCH (22:02)
[2018-03-27] MEDS: WARFARIN SODIUM 5 MG TABLET PO SCH (22:03)
[2018-03-27] MEDS: AMLODIPINE BESYLATE 5 MG TABLET PO SCH (22:03)
[2018-03-28] MEDS: HYDRALAZINE HCL 50 MG TABLET PO SCH (05:38)
[2018-03-28] MEDS: HEPARIN SOD (PORCINE) 5,000 UNIT/ML 1 ML SYRINGE SUBCUT SCH ×3 (05:38→21:44)
[2018-03-28 06:51] LABS: ABSOLUTE LYMPHOCYTES (AUTO) 1.8 10^3/uL (0.5-4.7); ABSOLUTE MONOCYTES (AUTO) 0.6 10^3/uL (0.1-1.4); ABSOLUTE NEUT (AUTO) 7.7 10^3/uL (1.7-8.2); BASOPHILS % (AUTO) 0.1 % (0-2); EOSINOPHILS % (AUTO) 0.4 % (0-6); HEMATOCRIT 35.1 % (36.0-47.0); HEMOGLOBIN 12.7 g/dL (12.0-15.5); LYMPHOCYTES % (AUTO) 17.8 % (13-45); MEAN CORPUSCULAR HEMOGLOBIN 33.5 pg (27.0-33.4); MEAN CORPUSCULAR HGB CONC 36.1 g/dL (32.0-36.0); MEAN CORPUSCULAR VOLUME 93 fl (80-97); PLATELET COUNT 267 10^3/uL (150-450); RED BLOOD COUNT 3.78 10^6/uL (3.72-5.28); RED CELL DISTRIBUTION WIDTH 13.4 % (11.5-14.0); SEGMENTED NEUTROPHILS % (AUTO) 75.7 % (42-78); TOTAL CELLS COUNTED % (AUTO) 100 %; WHITE BLOOD COUNT 10.1 10^3/uL (4.0-10.5)
[2018-03-28 06:55] LABS: INTERNATIONAL RATION (INR) 1.02; PROTHROMBIN TIME 13.9 SEC (11.4-15.4)
[2018-03-28 07:11] LABS: ALANINE AMINOTRANSFERASE 44 U/L (9-52); ALBUMIN 3.8 g/dL (3.5-5.0); ALKALINE PHOSPHATASE 60 U/L (38-126); ANION GAP 12 (5-19); ASPARTATE AMINO TRANSFERASE 29 U/L (14-36); BILIRUBIN,DIRECT 0.2 mg/dL (0.0-0.4); BILIRUBIN,TOTAL 0.7 mg/dL (0.2-1.3); BLOOD UREA NITROGEN 23 mg/dL (7-20); CALCIUM 10.7 mg/dL (8.4-10.2); CARBON DIOXIDE 27 mmol/L (22-30); CHLORIDE 95 mmol/L (98-107); GLUCOSE 125 mg/dL (75-110); POTASSIUM 4.9 mmol/L (3.6-5.0); SODIUM 133.5 mmol/L (137-145); TOTAL PROTEIN 6.7 g/dL (6.3-8.2)
--- NOTE | 2018-03-28 08:39 | PDOC PROGRESS REPORT ---
Subjective Progress Note for:: 03/28/18 Subjective:: The patient is doing much better. Her neck has improved. He appears to be slightly more confused which may be related to prednisone. He is tolerating other medications well. The family has discussed with the computer programmer about the Coumadin. Reason For Visit: NEW ONSET AFIB, SYNCOPE VASOVAGAL, HTN, Physical Exam Vital Signs: Temp Pulse Resp BP Pulse Ox 97.9 F 65 20 155/76 H 96 03/28/18 04:19 03/28/18 07:00 03/28/18 04:19 03/28/18 04:19 03/28/18 04:19 Intake & Output 03/27/18 03/28/18 03/29/18 06:59 06:59 06:59 Intake Total 1337 2204 Output Total 50 200 Balance 1287 2003 Weight 60.7 kg 59.9 kg General appearance: PRESENT: mild distress Head exam: PRESENT: atraumatic Eye exam: PRESENT: conjunctiva pink Neck exam: PRESENT: carotid bruit. ABSENT: JVD Respiratory exam: PRESENT: clear to auscultation martha Cardiovascular exam: PRESENT: irregular rhythm, +S1, +S2 GI/Abdominal exam: PRESENT: normal bowel sounds, soft Extremities exam: PRESENT: full ROM Musculoskeletal exam: PRESENT: ambulatory Neurological exam: PRESENT: alert, awake Psychiatric exam: PRESENT: anxious Results Laboratory Results: 03/28/18 06:00 03/28/18 06:00 03/27/18 03/27/18 03/28/18 13:10 13:10 06:00 WBC 10.1 RBC 3.78 Hgb 12.7 Hct 35.1 L MCV 93 MCH 33.5 H MCHC 36.1 H RDW 13.4 Plt Count 267 Seg Neutrophils % 75.7 Lymphocytes % 17.8 Monocytes % 6.0 Eosinophils % 0.4 Basophils % 0.1 Absolute Neutrophils 7.7 Absolute Lymphocytes 1.8 Absolute Monocytes 0.6 Absolute Eosinophils 0.0 Absolute Basophils 0.0 Sodium Potassium Chloride Carbon Dioxide Anion Gap BUN Creatinine Est GFR ( Amer) Est GFR (Non-Af Amer) Glucose Calcium Magnesium Total Bilirubin AST ALT Alkaline Phosphatase Total Protein Albumin Urine Color STRAW Urine Appearance CLEAR Urine pH 7.0 Ur Specific [place] 1.009 Urine Protein NEGATIVE Urine Glucose (UA) NEGATIVE Urine Ketones NEGATIVE Urine Blood NEGATIVE Urine Nitrite NEGATIVE Ur Leukocyte Esterase NEGATIVE Urine WBC (Auto) 2 Urine RBC (Auto) 0 Stool Occult Blood POSITIVE 03/28/18 06:00 WBC RBC Hgb Hct MCV MCH MCHC RDW Plt Count Seg Neutrophils % Lymphocytes % Monocytes % Eosinophils % Basophils % Absolute Neutrophils Absolute Lymphocytes Absolute Monocytes Absolute Eosinophils Absolute Basophils Sodium 133.5 L Potassium 4.9 Chloride 95 L Carbon Dioxide 27 Anion Gap 12 BUN 23 H Creatinine 0.81 Est GFR ( Amer) > 60 Est GFR (Non-Af Amer) > 60 Glucose 125 H Calcium 10.7 H Magnesium 1.7 Total Bilirubin 0.7 AST 29 ALT 44 Alkaline Phosphatase 60 Total Protein 6.7 Albumin 3.8 Urine Color Urine Appearance Urine pH Ur Specific [place] Urine Protein Urine Glucose (UA) Urine Ketones Urine Blood Urine Nitrite Ur Leukocyte Esterase Urine WBC (Auto) Urine RBC (Auto) Stool Occult Blood 03/23/18 03/23/18 03/24/18 19:30 19:30 01:35 Creatine Kinase 23 L 21 L CK-MB (CK-2) 0.55 Troponin I 0.019 03/24/18 03/24/18 03/24/18 01:35 07:50 07:50 Creatine Kinase 23 L CK-MB (CK-2) 0.55 0.69 Troponin I 0.013 0.021 Impressions: Carotid Doppler Study 03/23/18 00:00 IMPRESSION: NO HEMODYNAMICALLY SIGNIFICANT STENOSIS. Chest X-Ray 03/23/18 10:23 IMPRESSION: HEART ENLARGED WITHOUT FAILURE. NO OTHER SIGNIFICANT RADIOGRAPHIC FINDING IN THE CHEST. Head CT 03/23/18 10:23 IMPRESSION: CHRONIC CHANGES OF ATROPHY AND MICROVASCULAR ISCHEMIA. NO ACUTE PROCESS. EVIDENCE OF ACUTE STROKE: NO. Neck CTA 03/23/18 15:30 IMPRESSION: 1. Tortuous right internal carotid. No significant stenotic lesion. 2. There is a very prominent plaque in the carotid bulb at the origin the internal carotid. Significant stenosis is suggested. Ultrasound is recommended. 3. There is a 16 mm low-density lesion in the right lobe of the thyroid. Lung Scan-VQ NM 03/26/18 00:00 IMPRESSION: NORMAL VENTILATION-PERFUSION LUNG SCAN. NEGATIVE FOR PULMONARY EMBOLI. Assessment & Plan - Diagnosis (1) Hypertension Qualifiers: Hypertension type: essential hypertension Qualified Code(s): I10 - Essential (primary) hypertension Is this a current diagnosis for this admission?: Yes Plan: We will readjust the medications (2) Hyperlipemia Is this a current diagnosis for this admission?: Yes Plan: meds (3) Atrial fibrillation with slow ventricular response Is this a current diagnosis for this admission?: Yes Plan: Rate control. Will continue with Coumadin (4) Carotid stenosis Qualifiers: Laterality: unspecified laterality Qualified Code(s): I65.29 - Occlusion and stenosis of unspecified carotid artery Is this a current diagnosis for this admission?: Yes (5) Syncope Qualifiers: Syncope type: vasovagal syncope Qualified Code(s): R55 - Syncope and collapse Is this a current diagnosis for this admission?: Yes (6) Torticollis Is this a current diagnosis for this admission?: Yes Plan: Improved continue stretching and weaning of the prednisone (7) Cervical radiculopathy Is this a current diagnosis for this admission?: Yes Plan: Improved continue weaning off the prednisone (8) Mild dementia Is this a current diagnosis for this admission?: Yes Plan: We will continue current treatment. Will reevaluate once the patient is off the prednisone
[2018-03-28] MEDS: MAGNESIUM OXIDE 400 MG TABLET PO SCH (09:20)
[2018-03-28] MEDS: HYDROCHLOROTHIAZIDE 25 MG TABLET PO SCH (09:20)
[2018-03-28] MEDS: ASPIRIN 81 MG TABLET, ENT COATED PO SCH (09:20)
[2018-03-28] MEDS: PREDNISONE 10 MG TABLET PO SCH ×2 (09:20→17:32)
[2018-03-28] MEDS: LOSARTAN POTASSIUM 50 MG TABLET PO SCH (09:21)
[2018-03-28] MEDS: POTASSIUM CHLORIDE 10 MEQ CAPSULE.ER PO SCH ×2 (09:21→21:44)
[2018-03-28] MEDS: MULTIVITAMIN TABLET PO SCH (09:21)
[2018-03-28] MEDS: AMLODIPINE BESYLATE 5 MG TABLET PO SCH ×2 (09:21→21:46)
--- NOTE | 2018-03-28 11:25 | EKG REPORT ---
SEVERITY:- ABNORMAL ECG - ATRIAL FIBRILLATION, V-RATE 46-[address]-T CHANGES VS ISCHEMIA : Confirmed by: Laura Steel 28-Mar-2018 11:24:04
--- NOTE | 2018-03-28 15:00 | RADIOLOGY REPORT (SQ) ---
EXAM DESCRIPTION: [facility]/S [facility] DUPLEX ART/SOMMER FLOW COMPLETED DATE/TIME: 03/28/2018 10:45 am REASON FOR STUDY: Asses Bilateral Renal artery Stenosis.HTN COMPARISON: None. TECHNIQUE: Realtime and static grayscale images acquired. Selected color Doppler, velocities and spe ctral images recorded. LIMITATIONS: None. FINDINGS: RIGHT KIDNEY: RENAL ARTERY VELOCITIES: 39.2 cm/sec. Segmental artery velocity 46.3 cm/sec. RENAL VEIN: Color doppler flow present, patent. VELOCITY RATIO: 0.59. Normal waveforms. KIDNEY: Normal size. No significant pathology. LEFT KIDNEY: RENAL ARTERY VELOCITIES: 85.3 cm/sec. Segmental artery velocity 73.2 cm/sec. RENAL VEIN: Color doppler flow present, patent. VELOCITY RATIO: 1.29. Normal waveforms. KIDNEY: Normal size. No significant pathology. BLADDER: Not imaged. OTHER: Incidental note is made of gallstones. IMPRESSION: NO DOPPLER EVIDENCE OF HEMODYNAMICALLY SIGNIFICANT RENAL ARTERY STENOSIS. COMMENT: NORMAL RENAL ARTERY/AORTA VELOCITY RATIO IS LESS THAN OR EQUAL TO 3.5. TECHNICAL DOCUMENTATION: JOB ID: [id number] [employer]- All Rights Reserved Reading location - IP/workstation name: [email or web address]
[2018-03-28] MEDS: HYDRALAZINE HCL 25 MG TABLET PO SCH ×2 (15:24→21:45)
[2018-03-28] MEDS: ATORVASTATIN CALCIUM 10 MG TABLET PO SCH (21:45)
[2018-03-28] MEDS: WARFARIN SODIUM 5 MG TABLET PO SCH (21:46)
[2018-03-29] MEDS: HEPARIN SOD (PORCINE) 5,000 UNIT/ML 1 ML SYRINGE SUBCUT SCH ×2 (05:28→14:07)
[2018-03-29] MEDS: HYDRALAZINE HCL 25 MG TABLET PO SCH ×2 (05:29→14:05)
[2018-03-29 06:33] LABS: ABSOLUTE EOSINOPHILS # (AUTO) 0.1 10^3/uL (0.0-0.6); ABSOLUTE MONOCYTES (AUTO) 0.8 10^3/uL (0.1-1.4); ABSOLUTE NEUT (AUTO) 7.9 10^3/uL (1.7-8.2); BASOPHILS % (AUTO) 0.4 % (0-2); EOSINOPHILS % (AUTO) 0.5 % (0-6); HEMATOCRIT 36.3 % (36.0-47.0); HEMOGLOBIN 13.3 g/dL (12.0-15.5); LYMPHOCYTES % (AUTO) 18.4 % (13-45); MEAN CORPUSCULAR HEMOGLOBIN 33.3 pg (27.0-33.4); MEAN CORPUSCULAR HGB CONC 36.5 g/dL (32.0-36.0); MEAN CORPUSCULAR VOLUME 91 fl (80-97); MONOCYTES % (AUTO) 7.3 % (3-13); PLATELET COUNT 312 10^3/uL (150-450); RED BLOOD COUNT 3.98 10^6/uL (3.72-5.28); RED CELL DISTRIBUTION WIDTH 13.3 % (11.5-14.0); SEGMENTED NEUTROPHILS % (AUTO) 73.4 % (42-78); TOTAL CELLS COUNTED % (AUTO) 100 %; WHITE BLOOD COUNT 10.8 10^3/uL (4.0-10.5)
[2018-03-29 06:42] LABS: INTERNATIONAL RATION (INR) 1.27; PROTHROMBIN TIME 16.5 SEC (11.4-15.4)
[2018-03-29 06:58] LABS: ANION GAP 10 (5-19); BLOOD UREA NITROGEN 26 mg/dL (7-20); CALCIUM 10.7 mg/dL (8.4-10.2); CARBON DIOXIDE 28 mmol/L (22-30); CHLORIDE 90 mmol/L (98-107); GLUCOSE 122 mg/dL (75-110); SODIUM 128.3 mmol/L (137-145)
--- NOTE | 2018-03-29 08:45 | PDOC DISCHARGE SUMMARY ---
General - Admit/Disc Date/PCP Admission Date/Primary Care Provider: 03/23/18 17:57 LOLLY HARTMAN MD Discharge Date: 03/29/18 - Discharge Diagnosis (1) Hypertension Is this a current diagnosis for this admission?: Yes Summary: Continue current medications. Avoid diuretics (2) Hyperlipemia Is this a current diagnosis for this admission?: Yes Summary: Continue current treatment (3) Atrial fibrillation with slow ventricular response Is this a current diagnosis for this admission?: Yes Summary: Continue current medications. Follow-up with cardiology for an event monitor (4) Carotid stenosis Is this a current diagnosis for this admission?: Yes (5) Syncope Is this a current diagnosis for this admission?: Yes (6) Torticollis Is this a current diagnosis for this admission?: Yes Summary: Continue prednisone for 7 more days and then will wean off (7) Cervical radiculopathy Is this a current diagnosis for this admission?: Yes Summary: Continue current treatment (8) Mild dementia Is this a current diagnosis for this admission?: Yes Summary: We will reevaluate once the patient is stable for possible treatment - Additional Information Prescriptions: Warfarin Sodium [Coumadin 5 mg Tablet] 5 mg PO QHS #30 tablet Amlodipine Besylate [Norvasc 5 mg Tablet] 5 mg PO Q12 #60 tablet Hydralazine HCl [Apresoline 25 mg Tablet] 50 mg PO Q8 #90 tablet Losartan Potassium [Cozaar 50 mg Tablet] 100 mg PO DAILY #30 tablet Magnesium Oxide [Mag-Ox 400 mg Tablet] 400 mg PO DAILY #60 tablet Potassium Chloride [Klor-Con 10 Meq Capsule ER] 10 meq PO Q12 #60 capsule.er Prednisone [Deltasone 10 mg Tablet] 10 mg PO DAILY #30 tablet Home Medications: Lovastatin 2 tab PO QHS 09/11/15 Aspirin [Ecotrin] 81 mg PO DAILY PRN 03/23/18 Multivitamin/Iron/Folic Acid [Centrum Women Tablet] 1 tab PO DAILY 03/23/18 Oxybutynin Chloride [Oxybutynin Chloride ER] 10 mg PO DAILY 03/23/18 Acetaminophen [Tylenol 325 mg Tablet] 650 mg PO Q4HP PRN tablet 03/29/18 Amlodipine Besylate [Norvasc 5 mg Tablet] 5 mg PO Q12 #60 tablet 03/29/18 Hydralazine HCl [Apresoline 25 mg Tablet] 50 mg PO Q8 #90 tablet 03/29/18 Losartan Potassium [Cozaar 50 mg Tablet] 100 mg PO DAILY #30 tablet 03/29/18 Magnesium Oxide [Mag-Ox 400 mg Tablet] 400 mg PO DAILY #60 tablet 03/29/18 Potassium Chloride [Klor-Con 10 Meq Capsule ER] 10 meq PO Q12 #60 capsule.er 09/09 Prednisone [Deltasone 10 mg Tablet] 10 mg PO DAILY #30 tablet 03/29/18 Warfarin Sodium [Coumadin 5 mg Tablet] 5 mg PO QHS #30 tablet 03/29/18 History of Present Illness History of Present Illness: MARISELA PATEL is a 82 year old female Hospital Course Hospital Course: The patient was admitted after a syncopal episode. She was found to be in very slow bradycardic but irregularly irregular rhythm. She did quite well after the metoprolol has been stopped. Unfortunately her blood pressure continued to be high. Several of the medications have been rearranged. She was seen by cardiology. She continued to improve. Discussed with the daughter during the discharge about the need to keep an eye and avoid falls because of Coumadin. The patient is not a candidate for any new oral anticoagulants because of mitral valve prolapse and mitral regurgitation. On the day of discharge she appeared comfortable in no acute distress and will be discharged home Physical Exam Vital Signs: Temp Pulse Resp BP Pulse Ox 98.3 F 69 20 147/80 H 96 03/29/18 03:14 03/29/18 06:50 03/29/18 03:14 03/29/18 03:14 03/29/18 03:14 Intake & Output 03/28/18 03/29/18 03/30/18 06:59 06:59 06:59 Intake Total 2204 237 Output Total 200 300 Balance 2003 Weight 59.9 kg 59.6 kg General appearance: PRESENT: no acute distress Head exam: PRESENT: atraumatic Neck exam: ABSENT: carotid bruit, JVD Respiratory exam: PRESENT: clear to auscultation martha Cardiovascular exam: PRESENT: irregular rhythm, +S1, +S2 GI/Abdominal exam: PRESENT: normal bowel sounds, soft Extremities exam: PRESENT: full ROM Musculoskeletal exam: PRESENT: ambulatory Neurological exam: PRESENT: awake Psychiatric exam: PRESENT: anxious Results Laboratory Results: 03/29/18 06:17 03/29/18 06:17 03/28/18 03/29/18 03/29/18 10:57 06:17 06:17 WBC 10.8 H RBC 3.98 Hgb 13.3 Hct 36.3 MCV 91 MCH 33.3 MCHC 36.5 H RDW 13.3 Plt Count 312 Seg Neutrophils % 73.4 Lymphocytes % 18.4 Monocytes % 7.3 Eosinophils % 0.5 Basophils % 0.4 Absolute Neutrophils 7.9 Absolute Lymphocytes 2.0 Absolute Monocytes 0.8 Absolute Eosinophils 0.1 Absolute Basophils 0.0 Sodium 128.3 L Potassium 5.0 Chloride 90 L Carbon Dioxide 28 Anion Gap 10 BUN 26 H Creatinine 0.75 Est GFR ( Amer) > 60 Est GFR (Non-Af Amer) > 60 Glucose 122 H Calcium 10.7 H Magnesium 1.8 C-Reactive Protein 5.0 03/23/18 03/23/18 03/24/18 19:30 19:30 01:35 Creatine Kinase 23 L 21 L CK-MB (CK-2) 0.55 Troponin I 0.019 03/24/18 03/24/18 03/24/18 01:35 07:50 07:50 Creatine Kinase 23 L CK-MB (CK-2) 0.55 0.69 Troponin I 0.013 0.021 Impressions: Carotid Doppler Study 03/23/18 00:00 IMPRESSION: NO HEMODYNAMICALLY SIGNIFICANT STENOSIS. Chest X-Ray 03/23/18 10:23 IMPRESSION: HEART ENLARGED WITHOUT FAILURE. NO OTHER SIGNIFICANT RADIOGRAPHIC FINDING IN THE CHEST. Head CT 03/23/18 10:23 IMPRESSION: CHRONIC CHANGES OF ATROPHY AND MICROVASCULAR ISCHEMIA. NO ACUTE PROCESS. EVIDENCE OF ACUTE STROKE: NO. Neck CTA 03/23/18 15:30 IMPRESSION: 1. Tortuous right internal carotid. No significant stenotic lesion. 2. There is a very prominent plaque in the carotid bulb at the origin the internal carotid. Significant stenosis is suggested. Ultrasound is recommended. 3. There is a 16 mm low-density lesion in the right lobe of the thyroid. Lung Scan-VQ NM 03/26/18 00:00 IMPRESSION: NORMAL VENTILATION-PERFUSION LUNG SCAN. NEGATIVE FOR PULMONARY EMBOLI. Vascular Ultrasound 03/28/18 08:00 IMPRESSION: NO DOPPLER EVIDENCE OF HEMODYNAMICALLY SIGNIFICANT RENAL ARTERY STENOSIS. Qualifiers - * PATIENT BEING DISCHARGED WITH ANY OF THE FOLLOWING DIAGNOSIS: No
[2018-03-29] MEDS: LOSARTAN POTASSIUM 50 MG TABLET PO SCH (09:38)
[2018-03-29] MEDS: ASPIRIN 81 MG TABLET, ENT COATED PO SCH (09:38)
[2018-03-29] MEDS: AMLODIPINE BESYLATE 5 MG TABLET PO SCH (09:38)
[2018-03-29] MEDS: POTASSIUM CHLORIDE 10 MEQ CAPSULE.ER PO SCH (09:38)
[2018-03-29] MEDS: MAGNESIUM OXIDE 400 MG TABLET PO SCH (09:38)
[2018-03-29] MEDS: MULTIVITAMIN TABLET PO SCH (09:38)
[2018-03-29] MEDS: PREDNISONE 10 MG TABLET PO SCH (09:38)
[2018-03-29] MEDS ORDERED: HYDROCHLOROTHIAZIDE 12.5 MG TABLET PO SCH (10:00)
[2018-03-29 11:31] VITALS: BP 134/70
--- NOTE | 2018-03-29 12:00 | EKG REPORT ---
SEVERITY:- ABNORMAL ECG - ATRIAL FIBRILLATION, V-RATE 51-86 PROBABLE LVH WITH SECONDARY REPOL ABNRM : Confirmed by: Laura Steel 29-Mar-2018 12:00:02
[2018-03-30 09:53] LABS: COMPLEMENT TOTAL (CH50) 60 U/mL (>41)
[2018-03-31 15:38] LABS: ANTIMYELOPEROXIDASE (MPO) AB <9.0 U/mL (0.0-9.0); CYTOPLASMIC (C-ANCA) <1:20 titer (Neg:<1:20)
[2018-04-01 17:28] LABS: ATYPICAL PANCA <1:20 titer (Neg:<1:20); PERINUCLEAR (P-ANCA) <1:20 titer (Neg:<1:20)
== END 2018-03-29 15:17 | disposition home health service (06) | DRG 310 ==
LOC: ER 09:37 → EH 17:57 → 3W 21:33
PROVIDERS: ADMIT Internal Medicine; ATTEND Internal Medicine
DX: I48.91 Unspecified atrial fibrillation (principal); I65.29 Occlusion and stenosis of unspecified carotid artery; I08.1 Rheumatic disorders of both mitral and tricuspid valves; E83.42 Hypomagnesemia; E87.6 Hypokalemia; I27.20 Pulmonary hypertension, unspecified; E04.1 Nontoxic single thyroid nodule; I10 Essential (primary) hypertension; M54.2 Cervicalgia; R55 Syncope and collapse; M43.6 Torticollis; M54.12 Radiculopathy, cervical region; F03.90 Unspecified dementia, unspecified severity, without behavioral disturbance, psychotic disturbance, mood disturbance, and anxiety; Z79.01 Long term (current) use of anticoagulants; Z79.82 Long term (current) use of aspirin; Z79.52 Long term (current) use of systemic steroids; Z79.899 Other long term (current) drug therapy
CPT/HCPCS: 36415; 70450; 70498; 71045; 78582; 80048; 80053; 81001; 82272; 82550; 82553; 82962; 83516; 83735; 84439; 84443; 84481; 84484; 85025; 85027; 85379; 85610; 85652; 86140; 86162; 86225; 86256; 86430; 93005; 93010; 93306; 93880; 93976; 99291; A9540; A9567; G8978-GP; G8979-GP; J1020; J1644; J1885; J3475; J3490; J7030; J7512; Q9969

== ENCOUNTER → 2018-04-03 | Outpatient (CLI) | payer MEDICARE | LOC: OD 16:02 | PROVIDERS: ATTEND Internal Medicine | DX: Z53.9 Procedure and treatment not carried out, unspecified reason (principal); I48.91 Unspecified atrial fibrillation ==

== ENCOUNTER 2018-04-12 13:53 | Emergency (ER) | payer MEDICARE ==
[2018-04-12 14:51] LABS: ABSOLUTE LYMPHOCYTES (AUTO) 0.6 10^3/uL (0.5-4.7); ABSOLUTE MONOCYTES (AUTO) 0.3 10^3/uL (0.1-1.4); BASOPHILS % (AUTO) 0.4 % (0-2); EOSINOPHILS % (AUTO) 0.7 % (0-6); HEMOGLOBIN 10.8 g/dL (12.0-15.5); LYMPHOCYTES % (AUTO) 9.1 % (13-45); MEAN CORPUSCULAR HEMOGLOBIN 33.6 pg (27.0-33.4); MEAN CORPUSCULAR HGB CONC 35.9 g/dL (32.0-36.0); MEAN CORPUSCULAR VOLUME 94 fl (80-97); MONOCYTES % (AUTO) 4.3 % (3-13); PLATELET COUNT 219 10^3/uL (150-450); RED BLOOD COUNT 3.21 10^6/uL (3.72-5.28); RED CELL DISTRIBUTION WIDTH 13.3 % (11.5-14.0); SEGMENTED NEUTROPHILS % (AUTO) 85.5 % (42-78); TOTAL CELLS COUNTED % (AUTO) 100 %; WHITE BLOOD COUNT 7.1 10^3/uL (4.0-10.5)
[2018-04-12 15:44] LABS: ALANINE AMINOTRANSFERASE 24 U/L (9-52); ALBUMIN 3.7 g/dL (3.5-5.0); ALKALINE PHOSPHATASE 59 U/L (38-126); ANION GAP 6 (5-19); ASPARTATE AMINO TRANSFERASE 15 U/L (14-36); BILIRUBIN,DIRECT 0.3 mg/dL (0.0-0.4); BILIRUBIN,TOTAL 0.3 mg/dL (0.2-1.3); BLOOD UREA NITROGEN 16 mg/dL (7-20); CALCIUM 10.1 mg/dL (8.4-10.2); CARBON DIOXIDE 28 mmol/L (22-30); CHLORIDE 100 mmol/L (98-107); GLUCOSE 137 mg/dL (75-110); POTASSIUM 4.5 mmol/L (3.6-5.0); SODIUM 134.4 mmol/L (137-145); TOTAL PROTEIN 6.3 g/dL (6.3-8.2)
[2018-04-12 15:47] LABS: PROTHROMBIN TIME > 120.0 SEC (11.4-15.4)
[2018-04-12] MEDS ORDERED: PHYTONADIONE 5 MG TABLET PO ONE (16:29)
--- NOTE | 2018-04-12 16:38 | ER Document Report ---
ED General - General Chief Complaint: Abnormal Lab Results Stated Complaint: ABNORMAL LABS Time Seen by Provider: 04/12/18 14:25 Notes: Patient developed some nosebleeds yesterday and she is on Coumadin and had her pro time checked this morning and it was 110.3 with an INR of 14 so she was referred here for evaluation and care. Patient says she is noticed a little trickle of blood from her right nostril when she blows her nose, passed a small clot of the left nostril. Has not had any other bleeding anywhere. Not bleeding actively at this time. Has no complaints. No headache. Has not recently hit her head or injured in any other way. Patient is on warfarin because she was diagnosed a couple of weeks ago with atrial fibrillation and mitral valve prolapse and was in this hospital getting anticoagulated. Patient denies chest pain. Denies abdominal pains. Denies any shortness of breath or difficulty breathing. TRAVEL OUTSIDE OF THE [place] IN LAST 30 DAYS: No - Related Data Allergies/Adverse Reactions: No Known Allergies Allergy (Verified 04/12/18 13:56) Past Medical History - Social History Smoking Status: Never Smoker Family History: Reviewed & Not Pertinent Patient has suicidal ideation: No Patient has homicidal ideation: No - Past Medical History Cardiac Medical History: Reports: Hx Atrial Fibrillation, Hx Hypertension - medicated, Other - Mitral valve prolapse Musculoskeletal Medical History: Reports Hx Arthritis Past Surgical History: Reports: Hx Appendectomy, Hx Hysterectomy, Hx Tonsillectomy Review of Systems - Review of Systems Notes: REVIEW OF SYSTEMS: CONSTITUTIONAL : Denies fever. EENT: Denies eye, ear, or mouth or throat pain or other symptoms. Minor trickling nosebleed intermittently after blowing her nose. CARDIOVASCULAR: Denies chest pain. RESPIRATORY: Denies cough, chest congestion, or shortness of breath. GASTROINTESTINAL: Denies abdominal pain or nausea, vomiting, or diarrhea. GENITOURINARY: Denies difficulty or painful urinating, urinary frequency, blood in urine. MUSCULOSKELETAL: Denies back or neck pain. Denies joint pain or swelling. Patient and family noted swelling of her lower extremities today. They have never noted it before. Both lower legs have slight +1-+2 pitting edema. Negative Homans bilaterally. SKIN: Denies rash or skin lesions. NEUROLOGICAL: Denies LOC or altered mental status. Denies headache. Denies sensory loss or motor deficits. ALL OTHER SYSTEMS REVIEWED AND NEGATIVE. Physical Exam - Vital signs Vitals: Temp Pulse Resp BP Pulse Ox 97.9 F 77 19 167/74 H 100 04/12/18 14:15 04/12/18 14:15 04/12/18 14:15 04/12/18 14:15 04/12/18 14:15 Interpretation: Normal Notes: PHYSICAL EXAMINATION: GENERAL: Well-appearing, in no acute distress. Patient actually looks great. No active bleeding anywhere. HEAD: Atraumatic, normocephalic. EYES: Pupils equal round and reactive to light, extraocular movements intact. ENT: oropharynx clear without exudates. Moist mucous membranes. No dry blood seen in either nostril. NECK: Normal range of motion, supple. LUNGS: Breath sounds clear and equal bilaterally. HEART: Irregularly irregular rhythm. ABDOMEN: Soft, nontender. No guarding or rebound. No masses. BACK: No tenderness throughout entire back. EXTREMITIES: Normal range of motion without pain. +1-+2 pitting edema both lower extremities below the knees. No tenderness. Negative Homans bilaterally. NEUROLOGICAL: Normal speech, normal gait. Normal sensory, motor, and reflex exams. Awake, alert, and oriented x3. Cranial nerves normal. PSYCH: Normal mood, normal affect. SKIN: Warm, dry, no rashes. No unusual bruises noted. Course - Re-evaluation Re-evalutation: 04/12/18 19:07 Repeat pro time here of greater than 120 and too high to calculate a INR. Discussed plan of care with Dr. Hartman and patient will be given 5 mg of vitamin K here and a prescription for 5 mg to take tomorrow morning and the next morning and then follow-up with Dr. Hartman. I also noted to Lolly Hartman MD in our telephone conversation at the patient had a hemoglobin of 13.3 on March 29 but only 10.8 today. She does not have any reported bleeding in stools or black stools or any other bleeding elsewhere. - Vital Signs Vital signs: Temp Pulse Resp BP Pulse Ox 97.5 F 80 15 153/76 H 97 04/12/18 17:06 04/12/18 17:06 04/12/18 17:06 04/12/18 17:06 04/12/18 17:06 - Laboratory Result Diagrams: 04/12/18 14:37 04/12/18 14:37 Laboratory results interpreted by me: 04/12/18 04/12/18 04/12/18 14:37 14:37 14:37 RBC 3.21 L Hgb 10.8 L Hct 30.0 L MCH 33.6 H Seg Neutrophils % 85.5 H Lymphocytes % 9.1 L PT > 120.0 H* Sodium 134.4 L Glucose 137 H Discharge - Discharge Clinical Impression: Excessive anticoagulation Condition: Stable Disposition: HOME, SELF-CARE Additional Instructions: Atrial Fibrillation Atrial fibrillation is an abnormal heart rhythm, caused by irregular electrical circuits in the upper heart chamber. It can be caused by heart valve disease, hardening of the arteries, or metabolic problems such as thyroid disease, or may occur without a clear cause. Atrial fibrillation may occur only occasionally, or may be chronic. Atrial fibrillation often results in a very fast heart rate, with palpitations, lightheadedness, and shortness of breath. Treatment is to slow the abnormally fast rate, and to convert the rhythm back to normal, if possible. Many patients stay in atrial fibrillation for years without symptoms or complications. Your doctor will decide whether you can be converted back to a normal heart rhythm. Contact the doctor or emergency medical system at once if you develop chest pain, shortness of breath, or severe lightheadedness, or if you develop any disturbance of consciousness, problems with speech, or localized weakness. Your anticoagulation medication, warfarin, as over anticoagulated your blood. You need to hold and do not take your Coumadin until Lolly Hartman MD tells you it is okay to resume taking it. Do not take your warfarin until you are instructed to start back taking it! You have been given vitamin K to take 1 pill today in the emergency department and then 1 pill each of the next 2 mornings. Lolly Hartman MD said that he will follow-up with you on Tuesday about determining how to take your medic ations after Tuesday. Please avoid doing anything that might put you at risk of falling or injuring herself. Do not blow your nose. If you do have bleeding and it will not stop, return to the emergency department immediately for us to reassess the situation. Prescriptions: Phytonadione [Mephyton 5 mg Tablet] 5 mg PO DAILY #2 tablet Referrals: LOLLY HARTMAN MD [Primary Care Provider] - Follow up as needed
[2018-04-12 17:10] VITALS: BP 153/76
== END 2018-04-12 17:06 | disposition home or self-care (01) ==
LOC: ER 13:53
DX: Z51.81 Encounter for therapeutic drug level monitoring (principal); R04.0 Epistaxis; I34.1 Nonrheumatic mitral (valve) prolapse; I48.91 Unspecified atrial fibrillation; Z79.01 Long term (current) use of anticoagulants; I10 Essential (primary) hypertension; R60.0 Localized edema
CPT/HCPCS: 99283; 36415; 85025; 85610; 80053; A9270; J3490

== ENCOUNTER 2018-04-15 21:34 | Inpatient (IN) | payer MEDICARE ==
--- NOTE | 2018-04-15 22:21 | ER Document Report ---
ED General - General Chief Complaint: General Weakness Stated Complaint: WEAKNESS Time Seen by Provider: 04/15/18 21:59 Notes: Patient is an 82-year-old female who presents to the emergency department with a chief complaint of chills, weakness, nauseous, loss of appetite, and sore all over. She states her symptoms started last night. When asked what brought her to the emergency department, she replied "I do not quite know, I was [facility]. And I was only seen here." When asked to elaborate, the patient did not have much to say. The patient did have complaints of nausea. She denies abdominal pain, but does complain of mild soreness. She also stated that ever since she started having stress incontinence, she has been having "problems." Her son and daughter were in the waiting room and provided some additional history. She was seen 3 days ago for a nosebleed here in the emergency department. She was told to stop her Coumadin, was given vitamin K, then she restarted her Coumadin last night. The family states that she has history of mitral valve prolapse and atrial fibrillation, and that is why she is on Coumadin. She also has history of hypertension and hyperlipidemia. She has a history of an appendectomy and hysterectomy. TRAVEL OUTSIDE OF THE [place] IN LAST 30 DAYS: No - Related Data Allergies/Adverse Reactions: No Known Allergies Allergy (Verified 04/15/18 22:50) Past Medical History - Social History Smoking Status: Unknown if Ever Smoked Family History: Reviewed & Not Pertinent Patient has suicidal ideation: No Patient has homicidal ideation: No - Past Medical History Cardiac Medical History: Reports: Hx Atrial Fibrillation, Hx Hypertension - medicated Denies: Hx Heart Attack - HX OF MITRAL VALVE PROLAPSE Pulmonary Medical History: Denies: Hx Asthma Neurological Medical History: Denies: Hx Cerebrovascular Accident, Hx Seizures Endocrine Medical History: Denies: Hx Diabetes Mellitus Type 2 Renal/ Medical History: Denies: Hx Peritoneal Dialysis GI Medical History: Denies: Hx Hepatitis, Hx Hiatal Hernia, Hx Ulcer Musculoskeletal Medical History: Reports Hx Arthritis Psychiatric Medical History: Denies: Hx Depression Infectious Medical History: Denies: Hx Hepatitis Past Surgical History: Reports: Hx Appendectomy, Hx Hysterectomy, Hx Tonsillectomy. Denies: Hx Mastectomy, Hx Open Heart Surgery, Hx Pacemaker Review of Systems - Review of Systems Notes: REVIEW OF SYSTEMS: CONSTITUTIONAL : See HPI EENT: Denies eye, ear, throat, or mouth pain, discharge, or symptoms. Denies nasal or sinus congestion. CARDIOVASCULAR: Denies chest pain. RESPIRATORY: Denies shortness of breath, cough, congestion, difficulty breathing, or wheezing. GASTROINTESTINAL: See HPI GENITOURINARY: See HPI MUSCULOSKELETAL: Denies neck and back pain. Denies joint pain or swelling. SKIN: Denies rash, itchiness, or lesions HEMATOLOGIC : Denies easy bruising or bleeding. LYMPHATIC: Denies swollen, painful, enlarged glands. NEUROLOGICAL: Denies no numbness or tingling denies weakness. Denies headache. Denies altered mental status. Denies alteration in speech. PSYCHIATRIC: Denies stress, anxiety, alteration in sleep patterns, or depr ession. All other systems reviewed and negative. Physical Exam - Vital signs Vitals: Temp Pulse Resp BP Pulse Ox 98.6 F 106 H 20 140/65 H 96 04/15/18 21:53 04/15/18 21:53 04/15/18 21:53 04/15/18 21:53 04/15/18 21:53 - Notes Notes: PHYSICAL EXAMINATION: GENERAL: Appears ill, healthy, well-nourished, mild distress, shaking. HEAD: Normocephalic, atraumatic. EYES: PERRL, conjunctiva normal, all extraocular movements intact, sclera nonicteric ENT: Dry mucous membranes. NECK: Supple, no noticeable swelling, redness, rash. Normal range of motion. LUNGS: Equal breath sounds bilaterally and clear to auscultation. No wheezes rales or rhonchi. CARDIOVASCULAR: S1-S2, tachycardic, regular rhythm. Radial pulses 2+, normal. ABDOMEN: Normoactive bowel sounds. Soft, tender, guarding noted, and no masses palpated. EXTREMITIES: Normal strength and range of motion, no pitting or edema. No cyanosis. NEUROLOGICAL: Moves all extremities upon command. Strength 5/5 in all extremities. Tremor noted in all extremities. PSYCH: Normal mood, normal affect. SKIN: Warm, dry. No rash, lesions, ulcerations noted. Normal skin turgor. Course - Re-evaluation Re-evalutation: Due to patient's atrial fibrillation at a rate of 110's I am suspicious of her having an acute infection. Although she does not have a fever, she is shaking and having chills. A full septic workup be done. 04/15/18 22:20 Due to patient's history of being off her Coumadin and given vitamin K, she will be sent for a CT of the head. Serial labs will also be drawn along with a VBG and lactic acid. A chest x-ray will be done and a urinalysis will be sent. 04/15/18 23:[address] of the head does not show an acute stroke. She does have some areas of infarct. These findings were discussed with the patient and her children. 04/15/18 23:30 Patient's chest x-ray is negative, no pneumonia noted. Her influenza test is negative. 04/15/18 23:50 I reassessed the patient abdomen and she has some guarding to the right side of her abdomen. She denies any pain, but states she has soreness to the area. I am suspicious that she might have some abdominal etiology related to her symptoms, especially since she has complained of nausea. She will be sent for CT of the abdomen and pelvis. She also has a lactic acid of 2.8. Her chemistries and urinalysis are unremarkable. 04/16/18 00:34 I have been informed that the patient has a temperature of 100.4 F. She will be given Tylenol for her fever. 04/16/18 01:[address] has resulted. She has acute cholecystitis. I have discussed these results with the patient and her children. I have ordered Zosyn for her and sent coags. Dr. Arnold will be called for admission. 04/16/18 01:44 I have talked with Dr. Arnold, and he will admit the patient. - Vital Signs Vital signs: Temp Pulse Resp BP Pulse Ox 99.3 F 106 H 20 128/51 H 98 04/16/18 01:30 04/15/18 21:53 04/16/18 03:00 04/16/18 02:01 04/16/18 03:00 - Laboratory Result Diagrams: 04/15/18 23:10 04/15/18 23:10 Laboratory results interpreted by me: 04/15/18 04/15/18 04/15/18 22:32 23:10 23:10 WBC 14.9 H RBC 3.64 L Hgb 11.9 L Hct 34.2 L Seg Neuts % (Manual) 95 H Lymphocytes % (Manual) 5 L Monocytes % (Manual) 0 L Abs Neuts (Manual) 14.2 H Abs Monocytes (Manual) 0.0 L PT VBG pH Sodium 135.4 L Glucose 129 H Lactic Acid Calcium 10.4 H Urine Blood SMALL H Ur Leukocyte Esterase SMALL H 04/15/18 04/15/18 04/15/18 23:10 23:10 23:10 WBC RBC Hgb Hct Seg Neuts % (Manual) Lymphocytes % (Manual) Monocytes % (Manual) Abs Neuts (Manual) Abs Monocytes (Manual) PT 17.2 H VBG pH 7.44 H Sodium Glucose Lactic Acid 2.8 H Calcium Urine Blood Ur Leukocyte Esterase - EKG Interpretation by Me Additional EKG results interpreted by me: 04/15/18 Atrial fibrillation. Rate 116. QRS 94; QT 316; QTC 439. Discharge - Discharge Clinical Impression: Cholecystitis, Lactic acidosis Condition: Fair Disposition: ADMITTED INPATIENT Admitting Provider: Surgicalist Unit Admitted: Surgical Floor
[2018-04-15] MEDS ORDERED: ONDANSETRON HCL INJ/PF 4 MG/2 ML SDV IV ONE (22:33)
[2018-04-15 22:54] LABS: APPEARANCE,URINE SLIGHTLY-CLOUDY; BILIRUBIN,URINE NEGATIVE (NEGATIVE); COLOR,URINE YELLOW; GLUCOSE, URINE NEGATIVE (NEGATIVE); KETONES,URINE NEGATIVE (NEGATIVE); LEUKOCYTE ESTERASE,URINE SMALL (NEGATIVE); NITRITE,URINE NEGATIVE (NEGATIVE); PROTEIN,URINE NEGATIVE (NEGATIVE); UROBILINOGEN,URINE NEGATIVE mg/dL (<2.0)
--- NOTE | 2018-04-15 23:04 | RADIOLOGY REPORT (SQ) ---
EXAM DESCRIPTION: AP view of the chest CLINICAL HISTORY:82 years Female, weakness Comparison: None FINDINGS: No focal lung consolidation. No pleural effusion. No pneumothorax. Cardiac silhouette is mildly enlarged. No acute osseous abnormality. Soft tissues are unremarkable. IMPRESSION: No acute findings. No focal lung consolidation.
[2018-04-15] MEDS ORDERED: RINGERS SOLUTION,LACTATED 1,000 ML IV ONE (23:07)
--- NOTE | 2018-04-15 23:07 | RADIOLOGY REPORT (SQ) ---
EXAM DESCRIPTION: CT HEAD WITHOUT IV CONTRAST COMPLETED DATE/TME: 04/15/2018 22:20 CLINICAL HISTORY: 82 years Female, weakness COMPARISON:03/23/2018 TECHNIQUE: No contrast. Coronal and sagittal reformat. This exam was performed according to our departmental dose-optimization program, which includes automated exposure control, adjustment of the mA and/or kV according to patient size and/or use of iterative reconstruction technique. FINDINGS: No hemorrhage. Small focal right frontal infarct/ encephalomalacia and small focal right parietal, cortical infarct/encephalomalacia, at the anterior and posterior cortical vascular watershed zones. No mass, mass effect, or midline shift. 1.3 cm right maxillary retention cyst-mucocele. Atherosclerosis. Moderate confluent white matter microangiopathy. Moderate diffuse parenchymal volume loss. Brain and extra-axial structures appear otherwise intact. IMPRESSION: No acute findings. 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
[2018-04-15 23:16] LABS: VENOUS BLOOD BASE EXCESS 1.7 mmol/L; VENOUS BLOOD HCO3 25.8 mmol/L (20-32); VENOUS BLOOD PCO2 39.2 mmHg (35-63); VENOUS BLOOD PH 7.44 (7.30-7.42)
[2018-04-15 23:17] LABS: HEMATOCRIT 34.2 % (36.0-47.0); HEMOGLOBIN 11.9 g/dL (12.0-15.5); MEAN CORPUSCULAR HEMOGLOBIN 32.7 pg (27.0-33.4); MEAN CORPUSCULAR HGB CONC 34.8 g/dL (32.0-36.0); MEAN CORPUSCULAR VOLUME 94 fl (80-97); PLATELET COUNT 192 10^3/uL (150-450); RED BLOOD COUNT 3.64 10^6/uL (3.72-5.28); RED CELL DISTRIBUTION WIDTH 13.4 % (11.5-14.0); WHITE BLOOD COUNT 14.9 10^3/uL (4.0-10.5)
[2018-04-15 23:23] LABS: A TYPE INFLUENZA AG NEGATIVE (NEGATIVE); B INFLUENZA AG NEGATIVE (NEGATIVE)
[2018-04-15 23:35] LABS: ALANINE AMINOTRANSFERASE 27 U/L (9-52); ALBUMIN 4.1 g/dL (3.5-5.0); ALKALINE PHOSPHATASE 69 U/L (38-126); ANION GAP 13 (5-19); ASPARTATE AMINO TRANSFERASE 18 U/L (14-36); BILIRUBIN,DIRECT 0.3 mg/dL (0.0-0.4); BILIRUBIN,TOTAL 1.1 mg/dL (0.2-1.3); BLOOD UREA NITROGEN 16 mg/dL (7-20); CALCIUM 10.4 mg/dL (8.4-10.2); CARBON DIOXIDE 23 mmol/L (22-30); CHLORIDE 99 mmol/L (98-107); GLUCOSE 129 mg/dL (75-110); POTASSIUM 3.9 mmol/L (3.6-5.0); SODIUM 135.4 mmol/L (137-145); TOTAL PROTEIN 6.9 g/dL (6.3-8.2)
[2018-04-15 23:38] LABS: ABSOLUTE LYMPHOCYTES# (MANUAL) 0.7 10^3/uL (0.5-4.7); ABSOLUTE NEUTROPHILS# (MANUAL) 14.2 10^3/uL (1.7-8.2); BASOPHILS % (MANUAL) 0 % (0-2); EOSINOPHILS % (MANUAL) 0 % (0-6); LYMPHOCYTES % (MANUAL) 5 % (13-45); MONOCYTES % (MANUAL) 0 % (3-13); SEGMENTED NEUTROPHILS % (MAN) 95 % (42-78); TOTAL CELLS COUNTED 100
[2018-04-15 23:39] LABS: PLATELET COMMENT ADEQUATE; RBC MORPHOLOGY COMMENT NORMO-CYTIC/CHROMIC
[2018-04-16] MEDS ORDERED: ACETAMINOPHEN 325 MG TABLET PO ONE (00:36)
--- NOTE | 2018-04-16 00:55 | RADIOLOGY REPORT (SQ) ---
CT ABDOMEN PELVIS WITH IV CONTRAST HISTORY: Right-sided abdominal pain. COMPARISON: None. TECHNIQUE: CT scan of the abdomen and pelvis with IV contrast. This exam was performed according to our departmental dose-optimization program, which includes automated exposure control, adjustment of the mA and/or kV according to patient size and/or use of iterative reconstruction technique. FINDINGS: The heart size is enlarged. No pleural or pericardial effusions. The lung bases are clear. There are multiple small hypodensities in the liver which are too small to characterize. The spleen and pancreas are unremarkable. A large gallstone is seen in the gallbladder neck. Additionally, there is pericholecystic fluid and inflammatory stranding in the gallbladder fossa, likely representing acute cholecystitis. No adrenal masses are identified. Both kidneys are symmetric, without hydronephrosis. No ureteral or bladder stones are seen. There has been a prior hysterectomy. There has been prior gastric surgery with a small hiatal hernia. No small bowel obstruction. There has been a prior appendectomy. Colonic diverticulosis without evidence of diverticulitis. A small amount of free fluid is seen in the pelvis. The aorta is normal caliber and contains atherosclerotic calcifications. The osseous structures are intact. IMPRESSION: Acute cholecystitis.
[2018-04-16] MEDS ORDERED: PIPERACILLIN/TAZOBACTAM 3.375 GM VIAL IV ONE (01:37)
[2018-04-16] MEDS ORDERED: FENTANYL CITRATE INJ/PF 100 MCG/2 ML AMPUL IV ONE (01:38)
[2018-04-16] MEDS ORDERED: ONDANSETRON HCL INJ/PF 4 MG/2 ML SDV IV PRN (01:45)
[2018-04-16] MEDS ORDERED: MORPHINE SULFATE 10 MG/ML INJ IV PRN ×2 (01:45→11:18)
[2018-04-16 01:47] LABS: INTERNATIONAL RATION (INR) 1.34; PROTHROMBIN TIME 17.2 SEC (11.4-15.4)
[2018-04-16 01:48] LABS: PARTIAL THROMBOPLASTIN TIME 34.9 SEC (23.5-35.8)
[2018-04-16] MEDS ORDERED: PIPERACILLIN/TAZOBACTAM 3.375 GM VIAL IV PRN (02:08)
[2018-04-16] MEDS: PIPERACILLIN SODIUM/TAZOBACTAM 3.375 GM in NORMAL SALINE 100 ML IV SCH ×4 (03:05→21:51)
[2018-04-16] MEDS: NORMAL SALINE 1000 ML 1,000 ML IV PRN ×2 (03:11→15:11)
--- NOTE | 2018-04-16 07:24 | PDOC H&P ---
History of Present Illness Admission Date/PCP: 04/16/18 02:04 LOLLY HARTMAN MD Patient complains of: RUQ pain History of Present Illness: MARISELA PATEL is a 82 year old female with a 2 day h/o malaise, RUQ abdominal pain, nausea, and vomiting. Her pain is rated at 6 out of 10. Her pain is situated in her RUQ and does not radiate. Her pain is constant. She presented to the ED with her family. She was found to have cholecystitis on CT. She denies CP, SOB, F/C, dizziness, GIVENS, melena, hematochezia, hematemesis, orthostasis, fatigue. She does have chronic A-fib, but has been off her Coumadin. Past Medical History Cardiac Medical History: Reports: Atrial Fibrillation, Hypertension - medicated Denies: Myocardial Infarction - HX OF MITRAL VALVE PROLAPSE Pulmonary Medical History: Denies: Asthma Neurological Medical History: Denies: Seizures Endocrine Medical History: Denies: Diabetes Mellitus Type 2 GI Medical History: Denies: Hepatitis, Hiatal Hernia Musculoskeltal Medical History: Reports: Arthritis Psychiatric Medical History: Denies: Depression Hematology: Denies: Anemia, Sickle Cell Disease Past Surgical History Past Surgical History: Reports: Appendectomy, Hysterectomy, Tonsillectomy Denies: Amputation, Mastectomy, Pacemaker Social History Smoking Status: Unknown if Ever Smoked Frequency of Alcohol Use: None Hx Recreational Drug Use: No Drugs: None Hx Prescription Drug Abuse: No - Advance Directive Resuscitation Status: Full Code Family History Family History: Reviewed & Not Pertinent Parental Family History Reviewed: Yes Children Family History Reviewed: Yes Sibling(s) Family History Reviewed.: Yes Medication/Allergy Home Medications: Lovastatin 2 tab PO QHS 09/11/15 Aspirin [Ecotrin] 81 mg PO DAILY PRN 03/23/18 Multivitamin/Iron/Folic Acid [Centrum Women Tablet] 1 tab PO DAILY 03/23/18 Oxybutynin Chloride [Oxybutynin Chloride ER] 10 mg PO DAILY 03/23/18 Acetaminophen [Tylenol 325 mg Tablet] 650 mg PO Q4HP PRN tablet 03/29/18 Amlodipine Besylate [Norvasc 5 mg Tablet] 5 mg PO Q12 #60 tablet 03/29/18 Hydralazine HCl [Apresoline 25 mg Tablet] 50 mg PO Q8 #90 tablet 03/29/18 Losartan Potassium [Cozaar 50 mg Tablet] 100 mg PO DAILY #30 tablet 03/29/18 Magnesium Oxide [Mag-Ox 400 mg Tablet] 400 mg PO DAILY #60 tablet 03/29/18 Potassium Chloride [Klor-Con 10 Meq Capsule ER] 10 meq PO Q12 #60 capsule.er 09/09 Prednisone [Deltasone 10 mg Tablet] 10 mg PO DAILY #30 tablet 03/29/18 Warfarin Sodium [Coumadin 5 mg Tablet] 5 mg PO QHS #30 tablet 03/29/18 Phytonadione [Mephyton 5 mg Tablet] 5 mg PO DAILY #2 tablet 04/12/18 Allergies/Adverse Reactions: No Known Allergies Allergy (Verified 04/15/18 22:50) Review of Systems Constitutional: PRESENT: anorexia. ABSENT: chills, fever(s), headache(s) Eyes: ABSENT: visual disturbances Ears: ABSENT: hearing changes Nose, Mouth, and Throat: ABSENT: sore throat Cardiovascular: ABSENT: chest pain, palpitations Respiratory: ABSENT: cough, dyspnea Gastrointestinal: PRESENT: abdominal pain, nausea, vomiting. ABSENT: hematemesis, hematochezia, melena Genitourinary: ABSENT: dysuria Musculoskeletal: ABSENT: back pain Integumentary: ABSENT: pruritus, rash Neurological: ABSENT: confusion, convulsions, dizziness, weakness Psychiatric: ABSENT: anxiety, depression Endocrine: ABSENT: cold intolerance, heat intolerance Hematologic/Lymphatic: PRESENT: easy bleeding - when taking Coumadin Physical Exam Vital Signs: Temp Pulse Resp BP Pulse Ox 99.3 F 106 H 20 128/51 H 98 04/16/18 01:30 04/15/18 21:53 04/16/18 03:00 04/16/18 02:01 04/16/18 03:00 Intake & Output 04/15/18 04/16/18 04/17/18 06:59 06:59 06:59 Intake Total 716 Balance 716 Weight 62.142 kg General appearance: PRESENT: no acute distress Head exam: PRESENT: atraumatic, normocephalic Eye exam: PRESENT: EOMI, PERRLA. ABSENT: scleral icterus Mouth exam: PRESENT: neck supple Teeth exam: ABSENT: poor dentation Neck exam: ABSENT: meningismus, tenderness, thyromegaly, tracheal deviation Respiratory exam: PRESENT: clear to auscultation martha, unlabored. ABSENT: chest wall tenderness, rhonchi, wheezes Cardiovascular exam: PRESENT: irregular rhythm Pulses: PRESENT: normal radial pulses Vascular exam: PRESENT: normal capillary refill. ABSENT: pallor GI/Abdominal exam: PRESENT: guarding - RUQ, Fowler's sign, soft, tenderness. ABSENT: distended Extremities exam: ABSENT: clubbing, pedal edema Neurological exam: PRESENT: alert, awake, oriented to person, oriented to place, oriented to time, oriented to situation Psychiatric exam: ABSENT: agitated, anxious, depressed Focused psych exam: ABSENT: delusional Skin exam: ABSENT: cyanosis, erythema, jaundice Results Laboratory Results: 04/15/18 23:10 04/15/18 23:10 04/15/18 04/15/18 04/15/18 22:32 23:10 23:10 WBC 14.9 H RBC 3.64 L Hgb 11.9 L Hct 34.2 L MCV 94 MCH 32.7 MCHC 34.8 RDW 13.4 Plt Count 192 Seg Neutrophils % Not Reportable Lymphocytes % Not Reportable Monocytes % Not Reportable Eosinophils % Not Reportable Basophils % Not Reportable Absolute Neutrophils Not Reportable Absolute Lymphocytes Not Reportable Absolute Monocytes Not Reportable Absolute Eosinophils Not Reportable Absolute Basophils Not Reportable VBG pH VBG pCO2 VBG HCO3 VBG Base Excess Sodium 135.4 L Potassium 3.9 Chloride 99 Carbon Dioxide 23 Anion Gap 13 BUN 16 Creatinine 0.67 Est GFR ( Amer) > 60 Est GFR (Non-Af Amer) > 60 Glucose 129 H Lactic Acid Calcium 10.4 H Total Bilirubin 1.1 AST 18 ALT 27 Alkaline Phosphatase 69 Total Protein 6.9 Albumin 4.1 Urine Color YELLOW Urine Appearance SLIGHTLY-CLOUDY Urine pH 7.0 Ur Specific [place] 1.010 Urine Protein NEGATIVE Urine Glucose (UA) NEGATIVE Urine Ketones NEGATIVE Urine Blood SMALL H Urine Nitrite NEGATIVE Ur Leukocyte Esterase SMALL H Urine WBC (Auto) 21 Urine RBC (Auto) 14 04/15/18 04/15/18 04/16/18 23:10 23:10 03:29 WBC RBC Hgb Hct MCV MCH MCHC RDW Plt Count Seg Neutrophils % Lymphocytes % Monocytes % Eosinophils % Basophils % Absolute Neutrophils Absolute Lymphocytes Absolute Monocytes Absolute Eosinophils Absolute Basophils VBG pH 7.44 H VBG pCO2 39.2 VBG HCO3 25.8 VBG Base Excess 1.7 Sodium Potassium Chloride Carbon Dioxide Anion Gap BUN Creatinine Est GFR ( Amer) Est GFR (Non-Af Amer) Glucose Lactic Acid 2.8 H 1.0 Calcium Total Bilirubin AST ALT Alkaline Phosphatase Total Protein Albumin Urine Color Urine Appearance Urine pH Ur Specific [place] Urine Protein Urine Glucose (UA) Urine Ketones Urine Blood Urine Nitrite Ur Leukocyte Esterase Urine WBC (Auto) Urine RBC (Auto) Impressions: Chest X-Ray 04/15/18 22:09 IMPRESSION: No acute findings. No focal lung consolidation. Head CT 04/15/18 22:20 IMPRESSION: No acute findings. 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 Abdomen/Pelvis CT 04/16/18 00:12 IMPRESSION: Acute cholecystitis. Assessment & Plan - Diagnosis (1) Acute cholecystitis Is this a current diagnosis for this admission?: Yes - Plan Summary Plan Summary: 82 y/o F with a history, physical, and imaging studies consistent with cholecystitis. She has been off of her coumadin for several days. I have recommended cholecystectomy as treatment. She has agreed to this. Risks/benefits discussed, informed consent obtained, and all questions answered.
--- NOTE | 2018-04-16 07:41 | EKG REPORT ---
SEVERITY:- ABNORMAL ECG - ATRIAL FIBRILLATION, V-RATE 85-146 NONSPECIFIC REPOL ABNORMALITY, DIFFUSE LEADS : Confirmed by: Neftali Blake MD 16-Apr-2018 07:40:13
[2018-04-16] MEDS ORDERED: SUCCINYLCHOLINE CHLORIDE INJ 200 MG/10 ML VIAL ONE (08:26)
[2018-04-16] MEDS ORDERED: NEOSTIGMINE METHYLSULFATE 10 MG/10 ML VIAL ONE (08:26)
[2018-04-16] MEDS ORDERED: DEXAMETHASONE SOD PHOSPHATE INJ 4 MG/1 ML VIAL ONE (08:26)
[2018-04-16] MEDS ORDERED: GLYCOPYRROLATE 1 MG/5 ML SYRINGE ONE (08:26)
[2018-04-16] MEDS ORDERED: ROCURONIUM BROMIDE INJ 50 MG/5 ML VIAL IV ONE (08:26)
[2018-04-16] MEDS ORDERED: ONDANSETRON HCL INJ/PF 4 MG/2 ML SDV ONE (08:26)
[2018-04-16] MEDS ORDERED: BUPIVACAINE HCL 0.25 % INJ/PF (2.5 MG/1 ML) 30 ML VIAL ONE (10:00)
[2018-04-16] MEDS ORDERED: FENTANYL CITRATE INJ/PF 100 MCG/2 ML AMPUL ONE (10:00)
[2018-04-16] MEDS ORDERED: PROPOFOL INJ 200 MG/20 ML VIAL IV ONE (10:01)
[2018-04-16] MEDS ORDERED: MORPHINE SULFATE 10 MG/ML INJ ONE (10:01)
[2018-04-16] MEDS ORDERED: MIDAZOLAM 2 MG/2 ML INJ ONE (10:01)
[2018-04-16] MEDS ORDERED: MEPERIDINE HCL/PF INJ 25 MG/1 ML DISP.SYRIN IV PRN (11:18)
[2018-04-16] MEDS ORDERED: DIPHENHYDRAMINE HCL 50 MG/ML VIAL IV PRN (11:18)
[2018-04-16] MEDS ORDERED: FENTANYL CITRATE INJ/PF 100 MCG/2 ML AMPUL IV PRN ×3 (11:18)
[2018-04-16] MEDS ORDERED: PROMETHAZINE HCL INJ 25 MG/1 ML VIAL IV PRN ×2 (11:18)
[2018-04-16] MEDS ORDERED: OXYCODONE-ACETAMINOPHEN 5-325 MG TABLET PO PRN ×2 (11:18)
--- NOTE | 2018-04-16 13:14 | Operative Report ---
Nonrecallable Operative Report DATE OF SURGERY: 04/16/18 PREOPERATIVE DIAGNOSIS: cholecystitis POSTOPERATIVE DIAGNOSIS: Acute, gangrenous, perforated, purulent cholecystitis OPERATION: Laparoscopic cholecystectomy SURGEON: JENNIFER DELCID ANESTHESIA: GA TISSUE REMOVED OR ALTERED: gallbladder COMPLICATIONS: none apparent ESTIMATED BLOOD LOSS: 50cc PROCEDURE: Drains: 15 Swazi Marcos drain in Gallbladder fossa. Procedure in detail: After informed consent was obtained, the patient was brought to the operating room and laid in the supine position. The abdomen was prepped and draped in a normal, sterile fashion. A 15 blade scalpel was used to create a supraumbilical incision. This was deepened to the use of sharp and blunt dissection. The cicatrix was identified, grasped with a Florencio clamp, and retracted upwards. The linea alba fascia was incised sharply. The abdomen was entered sharply. The balloon trocar was inserted, and pneumoperitoneum was achieved. A subxiphoid 5 mm port was placed under direct laparoscopic visualization. 2 more 5 mm ports were placed in the right upper quadrant in similar fashion. Atraumatic graspers were placed through the 5 mm ports. The gallbladder was retracted cephalad and laterally. There is a large amount of inflammation in and around the gallbladder. There was obvious purulent material emanating from the infundibulum of the gallbladder, confirming perforated, gangrenous, purulent cholecystitis. The dense inflammatory reaction made dissection at the inf undibulum very difficult. A dome down approach was then performed. Gallbladder was freed from the liver using electrocautery. It was dissected to a point felt to be above the cystic duct/infundibulum junction. Gallbladder was then amputated. The cystic artery was controlled with clips. After this maneuver, the cystic duct was easily identified. There was found to be bile emanating from the cystic duct. The infundibulum was then elevated and closed with sutures and clips. It was sutured into place using 2-0 nylon suture. The gallbladder was placed into an Endo Catch bag and pulled out the umbilicus. The camera was reinserted. The abdomen was copiously irrigated and suctioned until the effluent was clear. The hilum was inspected. It was found to be free of any leakage of blood or bile. Owing to the intense inflammation, a 15 Swazi round Marcos drain was passed through the lateral 5 mm trocar and placed into the gallbladder fossa. The 5 mm trochars were then removed under direct laparoscopic visualization. The supraumbilical trocar was removed, and pneumoperitoneum was relieved. The supraumbilical fascia was closed using 0 Vicryl suture in [id number] fashion. The overlying skin was closed using 4-0 Vicryl Rapide suture in subcuticular fashion. All sponge, instrument, and needle counts were correct x2. Condition: Stable.
[2018-04-16] MEDS ORDERED: NALOXONE HCL INJ/PF 0.4 MG/1 ML SDV ONE (14:12)
[2018-04-16] MEDS ORDERED: ACETAMINOPHEN 1,000 MG/100 ML RTUPB IV ONE (14:24)
[2018-04-16] MEDS ORDERED: FLUMAZENIL INJ 0.5 MG/5 ML VIAL ONE (14:29)
[2018-04-16] MEDS ORDERED: HYDROCODONE/ACETAMINOPHEN 5-325 MG TABLET PO PRN (15:40)
[2018-04-17] MEDS: PIPERACILLIN SODIUM/TAZOBACTAM 3.375 GM in NORMAL SALINE 100 ML IV SCH ×2 (03:03→08:29)
[2018-04-17 05:26] LABS: ABSOLUTE LYMPHOCYTES (AUTO) 0.6 10^3/uL (0.5-4.7); ABSOLUTE MONOCYTES (AUTO) 0.2 10^3/uL (0.1-1.4); ABSOLUTE NEUT (AUTO) 7.3 10^3/uL (1.7-8.2); BASOPHILS % (AUTO) 0.1 % (0-2); HEMATOCRIT 25.4 % (36.0-47.0); LYMPHOCYTES % (AUTO) 7.7 % (13-45); MEAN CORPUSCULAR HEMOGLOBIN 33.3 pg (27.0-33.4); MEAN CORPUSCULAR HGB CONC 35.3 g/dL (32.0-36.0); MEAN CORPUSCULAR VOLUME 94 fl (80-97); MONOCYTES % (AUTO) 2.8 % (3-13); PLATELET COUNT 159 10^3/uL (150-450); RED BLOOD COUNT 2.69 10^6/uL (3.72-5.28); RED CELL DISTRIBUTION WIDTH 13.7 % (11.5-14.0); SEGMENTED NEUTROPHILS % (AUTO) 89.4 % (42-78); TOTAL CELLS COUNTED % (AUTO) 100 %; WHITE BLOOD COUNT 8.1 10^3/uL (4.0-10.5)
[2018-04-17 05:39] LABS: ALANINE AMINOTRANSFERASE 83 U/L (9-52); ALBUMIN 2.6 g/dL (3.5-5.0); ALKALINE PHOSPHATASE 65 U/L (38-126); ANION GAP 5 (5-19); ASPARTATE AMINO TRANSFERASE 57 U/L (14-36); BILIRUBIN,DIRECT 0.3 mg/dL (0.0-0.4); BILIRUBIN,TOTAL 0.7 mg/dL (0.2-1.3); BLOOD UREA NITROGEN 17 mg/dL (7-20); CALCIUM 9.2 mg/dL (8.4-10.2); CARBON DIOXIDE 26 mmol/L (22-30); CHLORIDE 108 mmol/L (98-107); GLUCOSE 120 mg/dL (75-110); POTASSIUM 4.4 mmol/L (3.6-5.0); SODIUM 138.5 mmol/L (137-145); TOTAL PROTEIN 5.2 g/dL (6.3-8.2)
[2018-04-17] MEDS ORDERED: ACETAMINOPHEN 325 MG TABLET ONE (09:30)
--- NOTE | 2018-04-17 09:32 | Discharge Summary ---
Discharge Summary (SDC) - Discharge Final Diagnosis: Gangrenous cholecystitis Date of Surgery: 04/16/18 Condition: Good Treatment or Instructions: Patient was admitted yesterday with right upper quadrant pain by Dr. Arnold. Was found to have acute cholecystitis and was taken to the operating room yesterday where she underwent a left scopic cholecystectomy time of surgery she was found to have gangrenous cholecystitis and the gallbladder was removed and the drain was placed. She had been on Coumadin for chronic atrial fibrillation but it that had been stopped previously by her primary care doctor will remain hold until she follows up with her primary care physician morning on postop day 1 she is feeling better she still a little weak but she was week prior to admission to the hospital and she was managed at home with a walker she is tolerating a regular diet and she is up walking around with the walker and and requiring some assistance family was consulted and felt that they were capable of taking care of her at home as she wanted to be discharged today will be given a follow-up appointment with Dr. Arnold in 7-10 days to remove her drain to and for a general postoperative follow-up. Also there was a referral made to home health to follow-up with the patient at home given the appropriate postoperative cautions. At the time of discharge her wound is clean and dry her Franck Shelbi in place is putting out about 20 cc of serosanguineous fluid per day. Referrals: LOLLY HARTMAN MD [Primary Care Provider] - Follow up as needed Home Care Assistance: Home Health Activities Provided by Home Health Agency: ADL's Adaptive Devices on Discharge: Standard Walker Report the Following to Your Physician Immediately: Nausea, Vomiting, Increase in Pain, Yellow Skin, Fever over 101 Degrees
[2018-04-17 09:39] VITALS: BP 136/61
== END 2018-04-17 13:37 | disposition home health service (06) | DRG 418 ==
LOC: ER 21:34 → EH 04-16 02:04 → INTOOBSV 04-16 02:04 → 4N 04-16 03:50 → OBSVTOIN 04-17 13:20
PROVIDERS: ADMIT Surgery; ATTEND Surgery
PROC: 0FT44ZZ Resection of Gallbladder, Percutaneous Endoscopic Approach (ICD-10-PCS; principal; 2018-04-16 11:00)
DX: K81.0 Acute cholecystitis (principal); E87.2 Acidosis; K82.A1 Gangrene of gallbladder in cholecystitis; I48.91 Unspecified atrial fibrillation; I10 Essential (primary) hypertension; E78.5 Hyperlipidemia, unspecified; R53.1 Weakness; Z79.01 Long term (current) use of anticoagulants; Z79.82 Long term (current) use of aspirin; Z79.899 Other long term (current) drug therapy
CPT/HCPCS: 36415; 70450; 71045; 74177; 790; 80053; 81001; 82803; 83605; 85025; 85610; 85730; 87804; 88304; 93005; 93010; 94762; 96361; 96374; 99285; G0378; J0131; J0330; J1100; J2250; J2270; J2310; J2405; J2543; J2704; J3010; J3490; J7030; J7120

== ENCOUNTER → 2018-08-08 | Outpatient (CLI) | payer MEDICARE, OTHER ==
[2018-08-08 11:36] LABS: INTERNATIONAL RATION (INR) 1.89; PROTHROMBIN TIME 22.6 SEC (11.4-15.4)
== END ==
LOC: OD 10:51
PROVIDERS: ATTEND Internal Medicine
DX: I48.91 Unspecified atrial fibrillation (principal)
CPT/HCPCS: 36415; 85610

== ENCOUNTER → 2018-09-11 | Outpatient (CLI) | payer MEDICARE, OTHER ==
[2018-09-11 11:31] LABS: PROTHROMBIN TIME 27.3 SEC (11.4-15.4)
== END ==
LOC: OD 10:48
PROVIDERS: ATTEND Internal Medicine
DX: I48.91 Unspecified atrial fibrillation (principal)
CPT/HCPCS: 36415; 85610

== ENCOUNTER → 2018-10-16 | Outpatient (CLI) | payer MEDICARE, OTHER ==
[2018-10-16 10:26] LABS: ABSOLUTE EOSINOPHILS # (AUTO) 0.2 10^3/uL (0.0-0.6); ABSOLUTE LYMPHOCYTES (AUTO) 1.2 10^3/uL (0.5-4.7); ABSOLUTE MONOCYTES (AUTO) 0.4 10^3/uL (0.1-1.4); ABSOLUTE NEUT (AUTO) 2.5 10^3/uL (1.7-8.2); BASOPHILS % (AUTO) 0.7 % (0-2); HEMOGLOBIN 11.6 g/dL (12.0-15.5); LYMPHOCYTES % (AUTO) 27.3 % (13-45); MEAN CORPUSCULAR HEMOGLOBIN 31.2 pg (27.0-33.4); MEAN CORPUSCULAR HGB CONC 35.2 g/dL (32.0-36.0); MEAN CORPUSCULAR VOLUME 89 fl (80-97); MONOCYTES % (AUTO) 9.3 % (3-13); PLATELET COUNT 210 10^3/uL (150-450); RED BLOOD COUNT 3.72 10^6/uL (3.72-5.28); RED CELL DISTRIBUTION WIDTH 14.6 % (11.5-14.0); SEGMENTED NEUTROPHILS % (AUTO) 58.7 % (42-78); TOTAL CELLS COUNTED % (AUTO) 100 %; WHITE BLOOD COUNT 4.3 10^3/uL (4.0-10.5)
[2018-10-16 10:32] LABS: INTERNATIONAL RATION (INR) 1.54; PROTHROMBIN TIME 19.2 SEC (11.4-15.4)
[2018-10-16 11:00] LABS: ALANINE AMINOTRANSFERASE 14 U/L (9-52); ALBUMIN 4.2 g/dL (3.5-5.0); ALKALINE PHOSPHATASE 82 U/L (38-126); ANION GAP 8 (5-19); ASPARTATE AMINO TRANSFERASE 16 U/L (14-36); BILIRUBIN,DIRECT 0.4 mg/dL (0.0-0.4); BLOOD UREA NITROGEN 19 mg/dL (7-20); CALCIUM 10.4 mg/dL (8.4-10.2); CARBON DIOXIDE 27 mmol/L (22-30); CHLORIDE 105 mmol/L (98-107); CHOLESTEROL 162.59 mg/dL (0-200); GLUCOSE 100 mg/dL (75-110); POTASSIUM 4.4 mmol/L (3.6-5.0); SODIUM 140.2 mmol/L (137-145); TOTAL PROTEIN 7.2 g/dL (6.3-8.2); TRIGLYCERIDES 91 mg/dL (<150)
[2018-10-16 11:11] LABS: DIRECT LDL 71 mg/dL (<100)
== END ==
LOC: OD 09:42
PROVIDERS: ATTEND Internal Medicine
DX: R53.83 Other fatigue (principal); I48.91 Unspecified atrial fibrillation; I10 Essential (primary) hypertension; E78.5 Hyperlipidemia, unspecified; Z79.01 Long term (current) use of anticoagulants
CPT/HCPCS: 36415; 80053; 80061; 84443; 85025; 85610

== ENCOUNTER → 2018-10-25 | Outpatient (CLI) | payer MEDICARE, OTHER ==
[2018-10-25 10:52] LABS: INTERNATIONAL RATION (INR) 1.66; PROTHROMBIN TIME 19.8 SEC (11.4-15.4)
== END ==
LOC: OD 10:01
PROVIDERS: ATTEND Internal Medicine
DX: I48.91 Unspecified atrial fibrillation (principal)
CPT/HCPCS: 36415; 85610

== ENCOUNTER → 2018-10-31 | Outpatient (CLI) | payer MEDICARE ==
[2018-10-31 12:19] LABS: ABSOLUTE EOSINOPHILS # (AUTO) 0.2 10^3/uL (0.0-0.6); ABSOLUTE LYMPHOCYTES (AUTO) 1.2 10^3/uL (0.5-4.7); ABSOLUTE MONOCYTES (AUTO) 0.4 10^3/uL (0.1-1.4); ABSOLUTE NEUT (AUTO) 2.8 10^3/uL (1.7-8.2); BASOPHILS % (AUTO) 0.8 % (0-2); EOSINOPHILS % (AUTO) 3.4 % (0-6); HEMATOCRIT 29.6 % (36.0-47.0); HEMOGLOBIN 10.5 g/dL (12.0-15.5); LYMPHOCYTES % (AUTO) 25.3 % (13-45); MEAN CORPUSCULAR HEMOGLOBIN 31.4 pg (27.0-33.4); MEAN CORPUSCULAR HGB CONC 35.5 g/dL (32.0-36.0); MEAN CORPUSCULAR VOLUME 89 fl (80-97); MONOCYTES % (AUTO) 9.5 % (3-13); PLATELET COUNT 210 10^3/uL (150-450); RED BLOOD COUNT 3.34 10^6/uL (3.72-5.28); TOTAL CELLS COUNTED % (AUTO) 100 %; WHITE BLOOD COUNT 4.7 10^3/uL (4.0-10.5)
[2018-10-31 12:25] LABS: INTERNATIONAL RATION (INR) 2.04; PROTHROMBIN TIME 23.3 SEC (11.4-15.4)
[2018-10-31 12:57] LABS: ALANINE AMINOTRANSFERASE 20 U/L (9-52); ALBUMIN 4.1 g/dL (3.5-5.0); ALKALINE PHOSPHATASE 74 U/L (38-126); ASPARTATE AMINO TRANSFERASE 16 U/L (14-36); BILIRUBIN,DIRECT 0.3 mg/dL (0.0-0.4); BILIRUBIN,TOTAL 0.6 mg/dL (0.2-1.3); BLOOD UREA NITROGEN 14 mg/dL (7-20); CALCIUM 10.2 mg/dL (8.4-10.2); CARBON DIOXIDE 29 mmol/L (22-30); CHLORIDE 107 mmol/L (98-107); CHOLESTEROL 141.24 mg/dL (0-200); GLUCOSE 91 mg/dL (75-110); POTASSIUM 4.4 mmol/L (3.6-5.0); SODIUM 140.2 mmol/L (137-145); TOTAL PROTEIN 6.8 g/dL (6.3-8.2); TRIGLYCERIDES 83 mg/dL (<150)
[2018-10-31 13:08] LABS: DIRECT LDL 69 mg/dL (<100)
[2018-10-31 14:01] LABS: ANION GAP 4 (5-19)
[2018-11-01 15:23] LABS: IRON(TIBC) 66.6 ug/dL (37-170)
[2018-11-01 15:29] LABS: RETICULOCYTE COUNT (AUTO) 2.06 % (0.66-2.85)
== END ==
LOC: OD 11:05
PROVIDERS: ATTEND Internal Medicine
DX: R53.83 Other fatigue (principal); I48.91 Unspecified atrial fibrillation; I10 Essential (primary) hypertension; E78.5 Hyperlipidemia, unspecified; Z79.01 Long term (current) use of anticoagulants; D64.9 Anemia, unspecified
CPT/HCPCS: 36415; 80053; 80061; 82728; 83540; 83550; 84443; 85025; 85045; 85610

== ENCOUNTER → 2018-11-28 | Outpatient (CLI) | payer MEDICARE ==
[2018-11-28 11:16] LABS: ABSOLUTE EOSINOPHILS # (AUTO) 0.1 10^3/uL (0.0-0.6); ABSOLUTE LYMPHOCYTES (AUTO) 1.2 10^3/uL (0.5-4.7); ABSOLUTE MONOCYTES (AUTO) 0.4 10^3/uL (0.1-1.4); ABSOLUTE NEUT (AUTO) 2.2 10^3/uL (1.7-8.2); EOSINOPHILS % (AUTO) 3.5 % (0-6); HEMATOCRIT 32.5 % (36.0-47.0); HEMOGLOBIN 11.4 g/dL (12.0-15.5); LYMPHOCYTES % (AUTO) 30.5 % (13-45); MEAN CORPUSCULAR HEMOGLOBIN 30.8 pg (27.0-33.4); MEAN CORPUSCULAR HGB CONC 35.1 g/dL (32.0-36.0); MEAN CORPUSCULAR VOLUME 88 fl (80-97); PLATELET COUNT 209 10^3/uL (150-450); RED BLOOD COUNT 3.69 10^6/uL (3.72-5.28); TOTAL CELLS COUNTED % (AUTO) 100 %
[2018-11-28 11:30] LABS: INTERNATIONAL RATION (INR) 2.43; PROTHROMBIN TIME 26.8 SEC (11.4-15.4)
[2018-11-28 11:37] LABS: ALBUMIN 4.4 g/dL (3.5-5.0); ALKALINE PHOSPHATASE 76 U/L (38-126); ANION GAP 8 (5-19); ASPARTATE AMINO TRANSFERASE 18 U/L (14-36); BILIRUBIN,DIRECT 0.3 mg/dL (0.0-0.4); BILIRUBIN,TOTAL 0.8 mg/dL (0.2-1.3); BLOOD UREA NITROGEN 18 mg/dL (7-20); CALCIUM 10.5 mg/dL (8.4-10.2); CARBON DIOXIDE 29 mmol/L (22-30); CHLORIDE 103 mmol/L (98-107); CHOLESTEROL 156.54 mg/dL (0-200); GLUCOSE 107 mg/dL (75-110); POTASSIUM 4.2 mmol/L (3.6-5.0); TOTAL PROTEIN 7.4 g/dL (6.3-8.2); TRIGLYCERIDES 123 mg/dL (<150)
[2018-11-28 11:48] LABS: DIRECT LDL 76 mg/dL (<100)
== END ==
LOC: OD 10:38
PROVIDERS: ATTEND Internal Medicine
DX: E78.5 Hyperlipidemia, unspecified (principal); I10 Essential (primary) hypertension; R53.83 Other fatigue; I48.91 Unspecified atrial fibrillation; Z79.01 Long term (current) use of anticoagulants
CPT/HCPCS: 36415; 80053; 80061; 84443; 85025; 85610

== ENCOUNTER → 2019-01-02 | Outpatient (CLI) | payer MEDICARE, OTHER ==
[2019-01-02 11:19] LABS: INTERNATIONAL RATION (INR) 2.27; PROTHROMBIN TIME 25.4 SEC (11.4-15.4)
== END ==
LOC: OD 10:28
PROVIDERS: ATTEND Internal Medicine
DX: Z51.81 Encounter for therapeutic drug level monitoring (principal); Z79.01 Long term (current) use of anticoagulants
CPT/HCPCS: 36415; 85610

== ENCOUNTER → 2019-02-01 | Outpatient (CLI) | payer MEDICARE, OTHER ==
[2019-02-01 11:20] LABS: INTERNATIONAL RATION (INR) 2.27; PROTHROMBIN TIME 25.4 SEC (11.4-15.4)
== END ==
LOC: OD 10:32
PROVIDERS: ATTEND Internal Medicine
DX: Z51.81 Encounter for therapeutic drug level monitoring (principal); Z79.01 Long term (current) use of anticoagulants
CPT/HCPCS: 36415; 85610

== ENCOUNTER → 2019-03-06 | Outpatient (CLI) | payer MEDICARE, OTHER ==
[2019-03-06 11:34] LABS: INTERNATIONAL RATION (INR) 1.63; PROTHROMBIN TIME 19.5 SEC (11.4-15.4)
== END ==
LOC: OD 10:36
PROVIDERS: ATTEND Internal Medicine
DX: Z51.81 Encounter for therapeutic drug level monitoring (principal); Z79.01 Long term (current) use of anticoagulants
CPT/HCPCS: 36415; 85610

== ENCOUNTER → 2019-04-03 | Outpatient (CLI) | payer MEDICARE, OTHER ==
[2019-04-03 13:09] LABS: INTERNATIONAL RATION (INR) 1.73; PROTHROMBIN TIME 20.5 SEC (11.4-15.4)
== END ==
LOC: OD 12:02
PROVIDERS: ATTEND Internal Medicine
DX: Z51.81 Encounter for therapeutic drug level monitoring (principal); Z79.01 Long term (current) use of anticoagulants
CPT/HCPCS: 36415; 85610

== ENCOUNTER → 2019-04-11 | Outpatient (CLI) | payer MEDICARE, OTHER ==
[2019-04-11 09:47] LABS: INTERNATIONAL RATION (INR) 1.59; PROTHROMBIN TIME 19.1 SEC (11.4-15.4)
== END ==
LOC: OD 08:42
PROVIDERS: ATTEND Internal Medicine
DX: Z51.81 Encounter for therapeutic drug level monitoring (principal); Z79.01 Long term (current) use of anticoagulants
CPT/HCPCS: 36415; 85610

== ENCOUNTER → 2019-04-26 | Outpatient (CLI) | payer MEDICARE, OTHER ==
[2019-04-26 09:50] LABS: INTERNATIONAL RATION (INR) 1.74; PROTHROMBIN TIME 20.6 SEC (11.4-15.4)
== END ==
LOC: OD 09:16
PROVIDERS: ATTEND Internal Medicine
DX: Z51.81 Encounter for therapeutic drug level monitoring (principal); Z79.01 Long term (current) use of anticoagulants
CPT/HCPCS: 36415; 85610

== ENCOUNTER → 2019-05-10 | Outpatient (CLI) | payer MEDICARE, OTHER | LOC: OD 09:03 | PROVIDERS: ATTEND Internal Medicine | DX: Z51.81 Encounter for therapeutic drug level monitoring (principal); Z79.01 Long term (current) use of anticoagulants | CPT/HCPCS: 36415; 85610 ==

== ENCOUNTER → 2019-06-07 | Outpatient (CLI) | payer MEDICARE, OTHER ==
[2019-06-07 10:37] LABS: INTERNATIONAL RATION (INR) 2.44; PROTHROMBIN TIME 26.9 SEC (11.4-15.4)
== END ==
LOC: OD 09:08
PROVIDERS: ATTEND Internal Medicine
DX: Z79.01 Long term (current) use of anticoagulants (principal)
CPT/HCPCS: 36415; 85610

== ENCOUNTER → 2019-08-09 | Outpatient (CLI) | payer MEDICARE, OTHER ==
[2019-08-09 10:39] LABS: INTERNATIONAL RATION (INR) 2.68
== END ==
LOC: OD 09:25
PROVIDERS: ATTEND Internal Medicine
DX: Z51.81 Encounter for therapeutic drug level monitoring (principal); Z79.01 Long term (current) use of anticoagulants
CPT/HCPCS: 36415; 85610

== ENCOUNTER → 2019-09-06 | Outpatient (CLI) | payer MEDICARE, OTHER ==
[2019-09-06 10:06] LABS: INTERNATIONAL RATION (INR) 2.93; PROTHROMBIN TIME 31.2 SEC (11.4-15.4)
== END ==
LOC: OD 09:18
PROVIDERS: ATTEND Internal Medicine
DX: Z51.81 Encounter for therapeutic drug level monitoring (principal); Z79.01 Long term (current) use of anticoagulants
CPT/HCPCS: 36415; 85610

== ENCOUNTER → 2019-09-20 | Outpatient (CLI) | payer MEDICARE, OTHER ==
[2019-09-20 09:44] LABS: INTERNATIONAL RATION (INR) 3.26
== END ==
LOC: OD 09:14
PROVIDERS: ATTEND Internal Medicine
DX: Z51.81 Encounter for therapeutic drug level monitoring (principal); Z79.01 Long term (current) use of anticoagulants
CPT/HCPCS: 36415; 85610

== ENCOUNTER → 2019-10-04 | Outpatient (CLI) | payer MEDICARE, OTHER ==
[2019-10-04 10:35] LABS: INTERNATIONAL RATION (INR) 1.99; PROTHROMBIN TIME 22.9 SEC (11.4-15.4)
== END ==
LOC: OD 09:15
PROVIDERS: ATTEND Internal Medicine
DX: Z79.01 Long term (current) use of anticoagulants (principal)
CPT/HCPCS: 36415; 85610

== ENCOUNTER → 2019-10-18 | Outpatient (CLI) | payer MEDICARE, OTHER ==
[2019-10-18 10:09] LABS: INTERNATIONAL RATION (INR) 2.09; PROTHROMBIN TIME 23.8 SEC (11.4-15.4)
== END ==
LOC: OD 09:08
PROVIDERS: ATTEND Internal Medicine
DX: Z79.01 Long term (current) use of anticoagulants (principal)
CPT/HCPCS: 36415; 85610

== ENCOUNTER → 2019-11-15 | Outpatient (CLI) | payer MEDICARE, OTHER ==
[2019-11-15 10:29] LABS: INTERNATIONAL RATION (INR) 1.92; PROTHROMBIN TIME 22.2 SEC (11.4-15.4)
== END ==
LOC: OD 09:15
PROVIDERS: ATTEND Internal Medicine
DX: I48.91 Unspecified atrial fibrillation (principal)
CPT/HCPCS: 36415; 85610

== ENCOUNTER → 2019-12-13 | Outpatient (CLI) | payer MEDICARE, OTHER ==
[2019-12-13 10:19] LABS: PROTHROMBIN TIME 23.6 SEC (11.4-15.4)
== END ==
LOC: OD 09:13
PROVIDERS: ATTEND Internal Medicine
DX: I48.91 Unspecified atrial fibrillation (principal)
CPT/HCPCS: 36415; 85610

== ENCOUNTER → 2020-01-15 | Outpatient (CLI) | payer MEDICARE, OTHER ==
[2020-01-15 10:45] LABS: INTERNATIONAL RATION (INR) 2.02; PROTHROMBIN TIME 22.9 SEC (11.4-15.4)
== END ==
LOC: OD 09:08
PROVIDERS: ATTEND Internal Medicine
DX: I48.91 Unspecified atrial fibrillation (principal)
CPT/HCPCS: 36415; 85610

== ENCOUNTER → 2020-02-11 | Outpatient (CLI) | payer MEDICARE, OTHER ==
[2020-02-11 10:07] LABS: INTERNATIONAL RATION (INR) 1.65; PROTHROMBIN TIME 19.6 SEC (11.4-15.4)
== END ==
LOC: OD 09:19
PROVIDERS: ATTEND Internal Medicine
DX: I48.91 Unspecified atrial fibrillation (principal)
CPT/HCPCS: 36415; 85610

== ENCOUNTER → 2020-02-27 | Outpatient (CLI) | payer MEDICARE, OTHER ==
[2020-02-27 11:20] LABS: INTERNATIONAL RATION (INR) 2.18; PROTHROMBIN TIME 24.3 SEC (11.4-15.4)
== END ==
LOC: OD 09:06
PROVIDERS: ATTEND Internal Medicine
DX: I48.91 Unspecified atrial fibrillation (principal)
CPT/HCPCS: 36415; 85610

== ENCOUNTER → 2020-03-27 | Outpatient (CLI) | payer MEDICARE, OTHER ==
[2020-03-27 10:32] LABS: PROTHROMBIN TIME 23.6 SEC (11.4-15.4)
== END ==
LOC: OD 09:12
PROVIDERS: ATTEND Internal Medicine
DX: I48.91 Unspecified atrial fibrillation (principal)
CPT/HCPCS: 36415; 85610

== ENCOUNTER → 2020-05-01 | Outpatient (CLI) | payer MEDICARE, OTHER ==
[2020-05-01 11:03] LABS: INTERNATIONAL RATION (INR) 1.75; PROTHROMBIN TIME 20.5 SEC (11.4-15.4)
== END ==
LOC: OD 09:44
PROVIDERS: ATTEND Internal Medicine
DX: I48.91 Unspecified atrial fibrillation (principal)
CPT/HCPCS: 36415; 85610

== ENCOUNTER → 2020-05-15 | Outpatient (CLI) | payer MEDICARE, OTHER ==
[2020-05-15 11:05] LABS: INTERNATIONAL RATION (INR) 1.87; PROTHROMBIN TIME 21.6 SEC (11.4-15.4)
== END ==
LOC: OD 08:54
PROVIDERS: ATTEND Internal Medicine
DX: I48.91 Unspecified atrial fibrillation (principal)
CPT/HCPCS: 36415; 85610